=== PATIENT | male | born 1970 | race Caucasian/White ===

== ENCOUNTER 2018-06-23 22:57 | Inpatient (IN) | payer SELFPAY ==
[2018-06-24 00:12] LABS: Hemoglobin 14.1 g/dL (14.0-18.0); Mean Corpuscular HGB CONC 35.5 g/dL (32.0-36.0); Mean Corpuscular Hemoglobin 31.8 pg (27.0-31.0); Mean Corpuscular Volume 89.5 fL (78.0-98.0); Mean Platelet Volume 5.3 fL (7.4-10.4); Platelet Count 331 thou/uL (130-400); RBC Distribution Width 11.9 % (11.5-14.5); Red Blood Cell (RBC) Count 4.43 mill/uL (4.70-6.10); White Blood Cell (WBC) Count 16.8 thou/uL (4.8-10.8)
[2018-06-24 00:14] LABS: ALT (SGPT) 23 U/L (8-55); AST (SGOT) 18 U/L (5-34); Albumin 4.2 g/dL (3.5-5.0); Alkaline Phosphatase 93 U/L (40-150); Anion Gap 13 mmol/L (10-20); BUN (Urea Nitrogen) 14 mg/dL (8.9-20.6); Bilirubin, Total 0.6 mg/dL (0.2-1.2); Calc. Creatinine Clearance 0 mL/min (70-130); Calcium 9.6 mg/dL (7.8-10.44); Carbon Dioxide 24 mmol/L (22-29); Chloride 100 mmol/L (98-107); Estimated GFR-MDRD 80; Globulin 2.8 g/dL (2.4-3.5); Glucose 193 mg/dL (70-105); Lipase 6 U/L (8-78); Potassium 3.9 mmol/L (3.5-5.1); Sodium 133 mmol/L (136-145)
[2018-06-24 00:38] LABS: Band 13 % (5-11); Lymphocytes 14 % (21-51); MDiff Complete? YES; Monocytes 5 % (0-10); Neutrophil 68 % (42-75)
[2018-06-24] MEDS ORDERED: Ondansetron HCl/PF 4 MG/2 ML Vial ONE (01:03)
[2018-06-24] MEDS ORDERED: Ketorolac Tromethamine 30 MG/ML VIAL ONE (01:03)
[2018-06-24] MEDS ORDERED: cefTRIAXone\\ROCEPHIN 1 GM VIAL ONE (01:31)
[2018-06-24 02:03] LABS: Bilirubin Negative (Negative); Blood, Urine Moderate (Negative); Clarity CLEAR (Clear); Glucose, Urine (Dipstick) Negative (Negative); Leukocyte Negative (Negative); Nitrite Negative (Negative); Protein, Urine (Dipstick) 30 mg/dL (Neg-Trace); pH, Urine 6.5 (5.0-9.0)
[2018-06-24 02:05] LABS: Bacteria/HPF None Seen HPF (None Seen); Hyaline Casts/LPF 0-3 HYALINE CAST LPF (0-3 Hyaline); RBC/HPF GREATER THAN 50-TNTC HPF (0-3); Squamous Epithelial 0-3 HPF (0-3); WBC/HPF None Seen HPF (0-3)
[2018-06-24] MEDS ORDERED: Morphine 4 MG/ML VIAL ONE (02:57)
[2018-06-24] MEDS ORDERED: Fentanyl 100 MCG/2 ML VIAL SLOW IVP PRN (04:39)
[2018-06-24] MEDS ORDERED: Ondansetron ODT 4 MG TAB SL PRN (04:40)
[2018-06-24] MEDS ORDERED: HYDROcodone/Acetaminophen 5/325 mg Tablet PO PRN ×2 (04:40)
[2018-06-24] MEDS ORDERED: Ondansetron HCl/PF 4 MG/2 ML Vial IVP PRN ×2 (04:40→07:29)
[2018-06-24] MEDS ORDERED: Sodium Chloride 0.45% 1,000 ML IV SCH (04:45)
[2018-06-24 04:51] VITALS: BMI 30.7
[2018-06-24 07:14] LABS: #Lymphocytes 2.1 thou/uL (1.20-3.40); #Neutrophils 11.4 thou/uL (1.40-6.50); %Basophils 0.3 % (0.0-1.0); %Eosinophils 0.1 % (0.0-10.0); %Lymphocytes 14.7 % (21.0-51.0); %Monocytes 6.7 % (0.0-10.0); %Neutrophils 78.2 % (42.0-75.0); Hemoglobin 12.5 g/dL (14.0-18.0); Mean Corpuscular HGB CONC 35.6 g/dL (32.0-36.0); Mean Corpuscular Hemoglobin 32.1 pg (27.0-31.0); Mean Corpuscular Volume 90.3 fL (78.0-98.0); Mean Platelet Volume 5.5 fL (7.4-10.4); Platelet Count 295 thou/uL (130-400); Red Blood Cell (RBC) Count 3.88 mill/uL (4.70-6.10); White Blood Cell (WBC) Count 14.5 thou/uL (4.8-10.8)
[2018-06-24] MEDS ORDERED: Loperamide HCl 2 MG CAP PO PRN (07:29)
[2018-06-24] MEDS ORDERED: hydrALAZINE 20 MG/ML VIAL SLOW IVP PRN (07:29)
[2018-06-24] MEDS ORDERED: Loratadine 10 MG TAB PO PRN (07:29)
[2018-06-24] MEDS ORDERED: Ondansetron ODT 4 MG TAB PO PRN (07:29)
[2018-06-24] MEDS ORDERED: Senokot 8.6 MG TAB PO PRN (07:29)
[2018-06-24] MEDS ORDERED: Artificial Tears 18 DROP/0.9 ML EA EYE PRN (07:29)
[2018-06-24] MEDS ORDERED: Chloraseptic Spray 180 ml Bottle PO PRN (07:29)
[2018-06-24] MEDS ORDERED: cloNIDine 0.1 MG TAB PO PRN (07:29)
[2018-06-24] MEDS ORDERED: Sodium Chloride 0.65% Nasal 44 ML BOT EA NARE PRN (07:29)
[2018-06-24] MEDS ORDERED: Diabetic Tussin 200 MG/10 ML UDCUP PO PRN (07:29)
[2018-06-24] MEDS ORDERED: Eucerin (Mineral Oil/Petrolatum,White) 30 gm Jar TOP PRN (07:29)
[2018-06-24] MEDS ORDERED: Zolpidem Tartrate 5 MG TAB PO PRN (07:29)
[2018-06-24] MEDS ORDERED: Morphine 4 MG/ML Carpuject SLOW IVP PRN (07:31)
[2018-06-24 08:40] LABS: Amphetamine Not Detected (NotDetected); Barbiturates Screen Not Detected (NotDetected); Benzodiazepine Screen Not Detected (NotDetected); Cocaine Metabolite Screen Not Detected (NotDetected); Medtox Control Line Valid? VALID (VALID); Medtox Reader # READER 1; Methadone Not Detected (NotDetected); Methamphetamine Not Detected (NotDetected); Opiate Screen Detected (NotDetected); Oxycodone Screen Not Detected (NotDetected); Phencyclidine (PCP) Not Detected (NotDetected); THC/Cannabinoid Screen Detected (NotDetected); Tricyclic Screen Not Detected (NotDetected)
[2018-06-24] MEDS ORDERED: ISOVUE-370 76%-LOCM 1 ML ONE (09:04)
--- NOTE | 2018-06-24 09:24 | CT ---
PRELIMINARY REPORT/[facility]/EMERGENTY AFTER-HOURS PROCEDURE Addendum created by Kole Rankin MD on 06/24/2018 1:31 AM Central Time ([place] & [place]) THIS REPORT CONTAINS FINDINGS THAT MAY BE CRITICAL TO PATIENT CARE. The findings were verbally commun icated via telephone conference with Carlos García at 1:31 AM CDT on 06/24/2018. The findings were ackn owledged and understood. Initial Report created on 06/24/2018 1:13 AM Central Time ([place] & [place]) CT Abdomen and Pelvis Without Intravenous Contrast EXAM DATE/TIME: Exam ordered 06/24/2018 12:47 AM CLINICAL HISTORY: 47 years old, male; Pain; Abdominal pain; Flank; Left; Patient HX: M47 presents to ed C/O abd pain, w ith sudden onset 1600 today. Associated with chills, l flank pain. Pain is constant, and pain quality described as severe and sharp. Pt denies hematuria. Last bm this morning, which pt reports was nrml. No pmhx pancreatitis, cholecystectomy. Denies ETOH ingestion. TECHNIQUE: Axial computed tomography images of the abdomen and pelvis without intravenous contrast. Coronal reformatted images were created and reviewed. COMPARISON: No relevant prior studies available. FINDINGS: Lung bases: There is subpleural atelectasis of the dependent portions of the lungs. ABDOMEN: Liver: The liver is within normal limits for this noncontrast study. Gallbladder and bile ducts: The gallbladder is normal. There is no evidence of biliary ductal dilatio n. No calcified stones. Pancreas: The pancreas appears normal. No ductal dilation. Spleen: The spleen is normal. Adrenals: The adrenal glands are normal. Kidneys and ureters: There is acute LEFT renal hematoma measuring 7.5 x 8.5 x 7.0 cm with perinephric hemorrhage as well. The right kidney is normal. No obstructing stones. No hydronephrosis. Stomach and bowel: The stomach is normal. The colon is normal. No obstruction. No mucosal thickening. PELVIS: Appendix: A normal appendix is identified. Bladder: The bladder is normal. No stones. Reproductive: The prostate gland and seminal vesicles are normal. ABDOMEN and PELVIS: Intraperitoneal space: Normal. No free air. No significant fluid collection. Bones/joints: No acute fracture. No dislocation. Soft tissues: Normal. Vasculature: Normal. No abdominal aortic aneurysm. Lymph nodes: Normal. No enlarged lymph nodes. IMPRESSION: Acute LEFT renal hemorrhage/hematoma as above. Thank you for allowing us to participate in the care of your patient. Dictated and Authenticated by: Kole Rankin MD 06/24/2018 1:13 AM Central Time ([place] & [place]) FINAL REPORT CT ABDOMEN AND PELVIS WITHOUT CONTRAST: Date: 06/24/18 FINDINGS/IMPRESSION: I agree with the preliminary report given by To. POS: OFF
[2018-06-24] MEDS: Sodium Chloride 0.9% 1,000 ML IV SCH ×2 (09:26→17:35)
[2018-06-24] MEDS: Famotidine 20 MG TAB PO SCH ×2 (09:26→20:49)
--- NOTE | 2018-06-24 09:26 | CT ---
PRELIMINARY REPORT/[facility]/EMERGENTY AFTER-HOURS PROCEDURE CT Abdomen and Pelvis Without And With Intravenous Contrast EXAM DATE/TIME: Exam ordered 06/24/2018 1:52 AM CLINICAL HISTORY: 47 years old, male; Pain; Abdominal pain; Flank; Left; Prior surgery; Patient HX: M47 presents to ed C/O abd pain, with sudden onset 1600 today. Associated with chills, l flank pain. Pain is constant, a nd pain quality described as severe and sharp. Pt denies hematuria. Last bm this morning, which pt re ports was nrml. No pmhx pancreatitis, cholecystectomy. Denies ETOH ingestion. ; Additional info: Per urologist request, to do a 3 phase renal mass protocol TECHNIQUE: Axial computed tomography images of the abdomen and pelvis without contrast material in one or both b annette regions followed by contrast material and further imaging in one or both body regions. Coronal an d sagittal reformatted images were created and reviewed. COMPARISON: CT Abdomen Pelvis WO Con 06/24/2018 12:47 AM FINDINGS: Lung bases: There is bibasilar dependent atelectasis. ABDOMEN: Liver: Normal. No mass. Gallbladder and bile ducts: Normal. No calcified stones. No ductal dilation. Pancreas: Normal. No mass. No ductal dilation. Spleen: Normal. No splenomegaly. Adrenals: Normal. No mass. Kidneys and ureters: Redemonstrated is a 10 x 7 x 10 mm LEFT renal hemorrhage/hematoma with perinephr ic hemorrhage without clear demonstration of active extravasation on these triple phase CT views (alt luanne no early arterial phase images were included). Punctate amorphous hyperdensity within the LEFT renal hemorrhage is noted, unchanged on each phase, suspicious for calcium versus pse udoaneurysm. ontrast passed freely from the kidneys to the urinary bladder. No obstructing stones. No hydronephrosis. Stomach and bowel: Normal. No obstruction. No mucosal thickening. PELVIS: Appendix: No findings to suggest acute appendicitis. Bladder: See above. Reproductive: Unremarkable as visualized. ABDOMEN and PELVIS: Intraperitoneal space: Normal. No free air. No significant fluid collection. Bones/joints: No acute fracture. No dislocation. Soft tissues: There is a fat-containing umbilical hernia. Vasculature: See above. Lymph nodes: Normal. No enlarged lymph nodes. IMPRESSION: 1. Redemonstrated is a 10 x 7 x 10 mm LEFT renal hemorrhage/hematoma with perinephric hemorrhage with out clear demonstration of active extravasation on these triple phase CT views (although no early art erial phase images were included). 2. Punctate amorphous hyperdensity within the LEFT renal hemorrhage is noted, unchanged on each phase , suspicious for calcium versus pseudoaneurysm. Thank you for allowing us to participate in the care of your patient. Dictated and Authenticated by: Kole Rankin MD 06/24/2018 2:43 AM Central Time ([place] & [place]) FINAL REPORT CT ABDOMEN AND PELVIS WITH AND WITHOUT IV CONTRAST: Date: 06/24/18 FINDINGS/IMPRESSION: I agree with the preliminary report given by To. POS: OFF
[2018-06-24 09:27] LABS: #Eosinphils 0.1 thou/uL (0.0-0.7); #Lymphocytes 2.3 thou/uL (1.20-3.40); #Neutrophils 11.1 thou/uL (1.40-6.50); %Basophils 0.1 % (0.0-1.0); %Eosinophils 0.6 % (0.0-10.0); %Lymphocytes 15.6 % (21.0-51.0); %Neutrophils 76.6 % (42.0-75.0); Hemoglobin 13.1 g/dL (14.0-18.0); Mean Corpuscular HGB CONC 35.4 g/dL (32.0-36.0); Mean Corpuscular Hemoglobin 31.9 pg (27.0-31.0); Mean Corpuscular Volume 90.1 fL (78.0-98.0); Mean Platelet Volume 5.4 fL (7.4-10.4); Platelet Count 320 thou/uL (130-400); White Blood Cell (WBC) Count 14.5 thou/uL (4.8-10.8)
[2018-06-24 09:36] LABS: PTT 29.5 SEC (22.9-36.1); Prothrombin Time 12.9 SEC (12.0-14.7)
[2018-06-24] MEDS: HYDROcodone/Acetaminophen 10/325 mg Tablet PO PRN ×2 (12:01→20:48)
--- NOTE | 2018-06-24 12:29 | CON ---
DATE OF CONSULTATION: 06/24/2018 REASON FOR CONSULTATION: 1. Left-sided flank pain. 2. Left-sided spontaneous perinephric hematoma. PROBLEM LIST Hematoma of left kidney, initial encounter, S37.012A Left flank pain, R10.9 UTI (urinary tract infection), N39.0 HISTORY OF PRESENT ILLNESS: Mr. 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 He reports that he was at work yesterday and developed some left-sided flank pain symptoms, which became progressively worse. He eventually presented to the [facility] Emergency Department starting , 06/24/2018, with severe left-sided flank pain symptoms. He underwent CT scanning of the abdomen and pelvis which demonstrated the presence of a left-sided perinephric hematoma. The patient has been admitted to the hospital and is on Hospitalist Service for observation due to the spontaneous left-sided perinephric hematoma. PAST SURGICAL HISTORY: None. PAST MEDICAL HISTORY: Umbilical hernia only. PSYCHIATRIC HISTORY: The patient has history of bipolar disorder, but is not under treatment. 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 He does not remember any specific injuries associated with work but does a lot of heavy lifting. He wears a lifting belt due to the umbilical hernia. The patient uses marijuana at home. He is a current cigarette smoker, 1-1/2 packs per day. He started smoking at age 14 and has smoked between 1-1-1/2 and 2 packs per day over that. In total, he has about 60 pack years of total cigarette smoking at this point. The patient is and has a child to his College age. He is not currently sexually active, has no male or female partners at present. ALLERGIES: No known drug allergies. HOME MEDICATIONS LIST: Patient takes ibuprofen, usually 800 mg twice a day when he is having pain symptoms and he has had 1600 mg of ibuprofen in the 24 hours prior to his acute onset of left-sided flank pain. PHYSICAL EXAMINATION: VITAL SIGNS: The patient is afebrile with current temperature of 98.0, pulse 71 , respirations 14, room air saturation is 96%. HEAD, EYES, EARS, NOSE, AND THROAT: Extraocular movements are intact. Sclerae are anicteric. Oropharynx is clear. NECK: Supple. LUNGS: Clear to auscultation bilaterally. There are body morphology associated changes in auscultation. CARDIAC: Regular rate and rhythm. EKG monitoring shows the patient to have been in normal sinus rhythm during the current hospitalization. ABDOMEN: Soft and nontender. There is a relatively prominent umbilical hernia which is reducible. BACK: Moderate left-sided flank pain which is continuous and dull in nature. GENITOURINARY: Phallus is circumcised and is without lesion. Urethral meatus appears adequate. Scrotum and contents; testes are present bilaterally in the scrotum. They are smooth, anodular, nontender. There is no evidence of palpable inguinal canal hernia. RECTAL: Digital rectal examination is performed and finds a smooth, anodular, nontender, rubbery characteristic prostate gland with no sinister features and it is nontender. Rectal vault is empty and there are no palpable rectal masses. There are no significant hemorrhoids, fissures or other abnormalities noted. EXTREMITIES: Appear within normal limits. LABORATORY STUDIES: The patient's white count at admission was 16.8 thousand. He had hemoglobin of 14.1 and hematocrit of 39.6. Follow up laboratories performed at 08:57 this morning shows a current white count of 14.5 thousand, hemoglobin of 13.1 and hematocrit of 36.9. Some of this appears to be due to hydration. No microbiology specimens are available for assessment. Urinalysis performed in the emergency department did show greater than 50 red cells per high power field. Urinary protein was 30 with a urine specific gravity of 1.030 indicating dehydration. RADIOLOGIC STUDIES: A CT scan of the abdomen and pelvis was performed on 2017. Study shows an apparent acute left renal hematoma measuring 7.5 x 8.5 x 7 cm with a degree of perinephric hemorrhage as well. Right kidney is normal. There is no evidence of obstructing stones or hydronephrosis on either side. To my review these studies, there is no clear evidence of a renal mass. A renal mass; however, cannot be excluded. Subsequent follow up imaging studies shows redemonstration of 10 x 7 x 10 cm left renal hemorrhage and hematoma with perinephric hemorrhage. There is no clear demonstration of active extravasation on triple phase CT scan study that was performed. There is a punctate amorphous density within the left renal hemorrhage which is unchanged suspicious for calcium or pseudoaneurysm. A large amount of perinephric inflammatory stranding is present. ASSESSMENT AND PLAN: Renal and/or perinephric hematoma with large volume, but no evidence of continued bleeding at the present time. Discussed with the patient's history and does not report significant trauma; however, he wears a lifting belt due to an umbilical hernia. 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 The patient reports that he sometimes bumps into things, but he has no specific recollection of an acute injury. This presentation because he have many potential causes concordant NSAID use alone would may be enough to cause a bleed. In this patient's case, there may be an aneurysm or stone within his kidney which could also be responsible for the presentation. He does appear to have a slight hematocrit drop overnight. The findings on the CT scan imaging studies would correlate well with bleeding from the kidney itself. The patient may have experienced an injury associated with the weight lifting belt itself since this may overlying his lower ribs which are mobile and may make an impression on the kidney itself during lifting event. The patient's heavy use of NSAIDs probably is a contributor to anticoagulation as well. PLAN: 1. The patient should remain on bed rest for at least 2-3 days. He should be followed appropriately with serial hematocrits while in hospital and will need subsequent imaging studies to evaluate his kidney. As the cause of his problem could be trauma, aneurysm rupture or a more sinister cause such as malignancy. This acute bleed needs to be evaluated for potential malignant causes over time and his hematoma will need to be followed. 2. Pain control. The patient's with perinephric or renal hematomas need terminal operator pain control with the medications that do not cause anticoagulation. NSAIDs specifically should be excluded for use in this patient. In my experience, this hematoma and bleeding event, we will leave a hematoma that requires 3-4 months to resolve naturally. Longer term, the patient may be requiring subsequent imaging studies and we should avoid performing any treatments on the patient that would result in further loss of renal function. The patient probably should undergo a baseline renal ultrasound evaluation at some point as well. CT imaging; however, is better for long-term evaluation and certainly evaluation for aneurysms and tumors, thus patient may follow up in my office for further evaluation and assessment. Over 70 minutes of initial evaluation and assessment time was spent in the care of this patient, over of which was in face to face evaluation, or in coordination of care, or in communication with the patient's family regarding care, exclusive of any procedures performed, [id number]. [facility]
--- NOTE | 2018-06-24 12:30 | HP ---
PRIMARY CARE PHYSICIAN: [facility] call admission. REASON FOR ADMISSION: Spontaneous left renal hemorrhage, intractable left flank pain. HISTORY OF PRESENT ILLNESS: A 47-year-old male who has no significant medical history, who was oleksandr odom on and off basis ibuprofen for his on and off musculoskeletal pain, who came to emergency room last night with acute onset of left flank pain, which was started yesterday around 4:00 p.m. which was sh matt in nature, constant, 10/10 in intensity, getting worse with sitting up position as well as with m ovement. He denied any gross hematuria. He denied any UTI symptoms. He did not have any constipati on, diarrhea, melena or hematochezia. He denies any fall or trauma. He denies any injury. With these symptoms, he presented to the ER and at that point, he had a CT of the abdomen and pelvis which showed left renal hemorrhage with perinephric hemorrhage. Dr. Andrade was notified from emergenc y room and subsequently this patient was admitted to telemetry floor. His pain was well controlled a fter pain medication in the emergency room, but it was not completely gone. He did not have any ches t pain, palpitation. He is not taking any blood thinner medicine. His vitals were stable in the [facility], [place]. REVIEW OF SYSTEMS: Please see my HPI for pertinent positive and negative. All other review of syste m reviewed and negative except as mentioned in the HPI. Constitutional: Weight loss or gain, ability to conduct usual activities. Skin: Rash, itching. Eyes: Double vision, pain. ENT/Mouth: Nose bleeding, neck stiffness, pain, tenderness. Cardiovascular: Palpitations, dyspnea on exertion, orthopnea. Respiratory: Shortness of breath, wheezing, cough, hemoptysis, fever or night sweats. Gastrointestinal: Poor appetite, abdominal pain, heartburn, nausea, vomiting, constipation, or diarrhea. Genitourinary: Urgency, frequency, dysuria, nocturia. Musculoskeletal: Pain, swelling. Neurologic/Psychiatric: Anxiety, depression. Allergy/Immunologic: Skin rash, bleeding tendency. ALLERGIES: No known drug allergy. CURRENT HOME MEDICATIONS: The patient was taking ibuprofen on as needed basis. PAST MEDICAL HISTORY: History of umbilical hernia, asymptomatic. No other medical history. PAST SURGICAL HISTORY: The patient denies any previous surgical history. PAST PSYCHIATRIC HISTORY : The patient does report that he was diagnosed with bipolar disorder, but currently he is not taking any medication. SOCIAL HISTORY: The patient reports that he abuses marijuana on and off basis. He smokes about 1.5 pack per day. He denies any alcohol abuse. He denies any other illicit drug abuse. FAMILY HISTORY: No strong family history of premature coronary artery disease, stroke or cancer. EMERGENCY ROOM COURSE: The patient was given Rocephin 1 gram, morphine 4 mg, Toradol 30 mg, IV fluid , Zofran 4 mg, and the patient was given another dose of morphine. PHYSICAL EXAMINATION: VITAL SIGNS: On arrival, blood pressure 124/83, pulse 82, respiratory rate 21, temperature 97.9, sat uration 95% on room air, weight 107.9 kilograms. GENERAL: The patient is currently alert, awake, no obvious acute distress. HEENT: Normocephalic, atraumatic. EYES: Pupils round, reactive to light. Extraocular muscle intact. ENT: Oropharynx within normal limits. Moist mucous membrane. No oral lesion, no pharyngeal erythem a, no exudate. NECK: Supple, no JVD, no thyromegaly, no carotid bruit, no jugular venous distention. LUNGS: Clear to auscultation without any rhonchi or rales. CARDIAC: S1, S2 regular. No murmur, no gallop, no rub. ABDOMEN: The patient does have left flank tenderness, no peritoneal sign, no guarding, no rigidity, no rebound, no suprapubic tenderness. BACK: Left-sided CVA discomfort noted. No low point tenderness. EXTREMITIES: Upper extremity: Passive movement of all joints are normal. Lower extremity: No anya a. Good distal pulsation. SKIN: No skin rash. HEMATOLOGICAL: No lymphadenopathy. PSYCHIATRIC: Normal affect. NEUROLOGIC: The patient is alert, oriented x3. Cranial nerves II-XII intact. Motor and sensation w ithin normal limits. No focal neurological deficit noted. SIGNIFICANT LABORATORY DATA: WBC 16.8, hemoglobin 14.1, platelets 331 with bandemia. INR 1.0. BMP: Sodium 133, potassium 3.9, chloride 100, carbon dioxide 24, BUN 14, creatinine 1.01, glucose 193, c alcium 9.6. Lactic acid 1.5. LFT: AST 18, ALT 23, alkaline phosphatase 93, albumin 4.2, lipase 6. Urinalysis microscopic hematuria. Urine drug screen positive for opiates and cannabinoids. CT of the abdomen and pelvis showed 10 x 7 x 10 mm left renal hemorrhage with perinephric hemorrhage, punctate amorphous hyperdensity within the left renal hemorrhage. monitor tech showing normal sinus rhythm. ASSESSMENT AND PLAN: 1. Intractable left flank pain due to spontaneous left renal hemorrhage with perinephric hemorrhage. 2. Left renal hemorrhage with perinephric hemorrhage, unclear etiology. 3. Leukocytosis with bandemia, likely due to problem #1 and 2. 4. Mild hyponatremia. 5. Elevated blood sugar, rule out prediabetes. 6. Microscopic hematuria likely due to problem #1 and 2. 7. Obesity with body mass index 30. 8. Cannabis abuse. 9. Tobacco abuse disorder. 10. Bipolar disorder. PLAN: 1. Full admission to medical floor. He does not need any telemetry, so we will transfer him to [facility] floor. His pain will be controlled with morphine 4 mg every 4 hourly p.r.n. basis. Urology deonna desouza consulted. He does not need any antibiotic therapy at this point. We will follow up on culture result. We will monitor H&H periodically. He does not need any blood transfusion at this point. We will resume his regular diet. We will ambulate him as tolerated. Tomorrow, we will check hemoglobi n A1c. We will repeat CBC and BMP tomorrow. Healthy lifestyle measure discussed with the patient in cluding to avoid cannabinoid abuse as well as tobacco abuse. 2. This patient will need a repeat MRI kidney or CT angiography to rule out any vascular anomaly in kidney after 2-3 weeks. He needs to follow up with Urology. 3. DVT prophylaxis. No Lovenox because of bleeding. 4. Gastrointestinal prophylaxis, Pepcid 20 mg p.o. b.i.d. 5. Code status: The patient is FULL CODE. The patient does not have any surrogate decision maker. Disposition plan based on clinical course and pain control. We are expecting patient's stay in [facility] more than 2 midnights. Plan of care discussed with the patient in detail.
[2018-06-24 12:57] LABS: #Eosinphils 0.2 thou/uL (0.0-0.7); #Lymphocytes 2.3 thou/uL (1.20-3.40); #Neutrophils 10.6 thou/uL (1.40-6.50); %Basophils 0.3 % (0.0-1.0); %Eosinophils 1.1 % (0.0-10.0); %Lymphocytes 16.1 % (21.0-51.0); %Monocytes 7.3 % (0.0-10.0); %Neutrophils 75.2 % (42.0-75.0); Hemoglobin 12.6 g/dL (14.0-18.0); Mean Corpuscular Hemoglobin 31.5 pg (27.0-31.0); Mean Platelet Volume 5.7 fL (7.4-10.4); Platelet Count 305 thou/uL (130-400); RBC Distribution Width 11.9 % (11.5-14.5); Red Blood Cell (RBC) Count 4.01 mill/uL (4.70-6.10)
[2018-06-24] MEDS: Nicotine 21 MG PATCH TOP SCH (20:47)
[2018-06-24] MEDS: Acetaminophen 325 MG TAB PO PRN (20:48)
[2018-06-25] MEDS: HYDROcodone/Acetaminophen 10/325 mg Tablet PO PRN ×3 (00:21→21:22)
[2018-06-25 05:29] LABS: #Eosinphils 0.1 thou/uL (0.0-0.7); #Lymphocytes 1.6 thou/uL (1.20-3.40); #Monocytes 1.2 thou/uL (0.11-0.59); #Neutrophils 11.5 thou/uL (1.40-6.50); %Eosinophils 0.5 % (0.0-10.0); %Lymphocytes 11.4 % (21.0-51.0); %Monocytes 8.6 % (0.0-10.0); %Neutrophils 79.5 % (42.0-75.0); Hemoglobin 11.7 g/dL (14.0-18.0); Mean Corpuscular HGB CONC 35.4 g/dL (32.0-36.0); Mean Corpuscular Hemoglobin 32.3 pg (27.0-31.0); Mean Corpuscular Volume 91.1 fL (78.0-98.0); Mean Platelet Volume 5.8 fL (7.4-10.4); Platelet Count 281 thou/uL (130-400); Red Blood Cell (RBC) Count 3.63 mill/uL (4.70-6.10); White Blood Cell (WBC) Count 14.4 thou/uL (4.8-10.8)
[2018-06-25 05:46] LABS: Anion Gap 9 mmol/L (10-20); BUN (Urea Nitrogen) 13 mg/dL (8.9-20.6); Calc. Creatinine Clearance 118 mL/min (70-130); Calcium 8.6 mg/dL (7.8-10.44); Carbon Dioxide 23 mmol/L (22-29); Chloride 105 mmol/L (98-107); Estimated GFR-MDRD 69; Glucose 118 mg/dL (70-105); Potassium 3.8 mmol/L (3.5-5.1); Sodium 133 mmol/L (136-145)
[2018-06-25] MEDS: Acetaminophen 325 MG TAB PO PRN ×2 (08:46→16:17)
[2018-06-25] MEDS: Famotidine 20 MG TAB PO SCH ×2 (08:46→21:24)
[2018-06-25] MEDS: Mag-Al 1200 mg/1200 mg/30 ML UDCUP PO PRN (08:48)
--- NOTE | 2018-06-25 10:40 | PDOC.PN ---
- Subjective Encounter Start Date: 06/25/18 Encounter Start Time: 07:00 -: old records requested/rev pt has tolerable left flank pain with current pain meds, he has not ambulated yet, he has fever, has high wbc count and hb is still dropping - Objective Resuscitation Status: Resuscitation Status FULL:Full Resuscitation MAR Reviewed: Yes Vital Signs & Weight: Vital Signs (12 hours) Temp Pulse Resp BP BP Pulse Ox 06/25/18 07:00 100.0 F H 93 18 137/74 90 L 06/24/18 23:39 98.3 F 87 16 123/78 93 L Weight Weight 226 lb 14.4 oz I&O: 06/24/18 06/25/18 06/26/18 06:59 06:59 06:59 Intake Total 1740 Output Total 1100 Balance 640 Result Diagrams: 06/25/18 04:56 06/25/18 04:56 Phys Exam - Physical Examination Constitutional: NAD HEENT: PERRLA, moist MMs, sclera anicteric Neck: no JVD, supple Respiratory: no wheezing, no rales, no rhonchi Cardiovascular: RRR, no significant murmur, no rub Gastrointestinal: soft, non-tender, no distention, positive bowel sounds left flank discomfort Musculoskeletal: no edema, pulses present Neurological: non-focal, normal sensation, moves all 4 limbs Lymphatic: no nodes Psychiatric: normal affect, A&O x 3 Skin: no rash, normal turgor Dx/Plan (1) Acute left flank pain Code(s): R10.9 - UNSPECIFIED ABDOMINAL PAIN Status: Acute (2) Hemorrhage of left kidney Code(s): N28.89 - OTHER SPECIFIED DISORDERS OF KIDNEY AND URETER Status: Acute (3) Anemia due to acute blood loss Code(s): D62 - ACUTE POSTHEMORRHAGIC ANEMIA Status: Acute (4) Leucocytosis Code(s): D72.829 - ELEVATED WHITE BLOOD CELL COUNT, UNSPECIFIED Status: Acute Qualifiers: Leukocytosis type: bandemia Qualified Code(s): D72.825 - Bandemia (5) Microscopic hematuria Code(s): R31.29 - OTHER MICROSCOPIC HEMATURIA Status: Acute (6) Cannabis abuse Code(s): F12.10 - CANNABIS ABUSE, UNCOMPLICATED Status: Chronic (7) Obesity (BMI 30.0-34.9) Code(s): E66.9 - OBESITY, UNSPECIFIED Status: Chronic (8) Tobacco abuse Code(s): Z72.0 - TOBACCO USE Status: Chronic - Plan cont current plan of care, plan discussed w/ family, continue antibiotics * will observe one more day * ambulate with walking program * pain control with pain meds * as fever, leucocytosis, will start rocephin * monitor H & H, still dropping * repeat labs tomorrow * medication reviewed as below * symptomatic treatment. Review of Systems - Review of Systems Constitutional: fever. negative: chills, sweats, weakness, malaise, other ENT: negative: Ear Pain, Ear Discharge, Nose Pain, Nose Discharge, Nose Congestion, Mouth Pain, Mouth Swelling, Throat Pain, Throat Swelling, Other Respiratory: negative: Cough, Dry, Shortness of Breath, Hemoptysis, SOB with Excertion, Pleuritic Pain, Sputum, Wheezing Cardiovascular: negative: chest pain, palpitations, orthopnea, paroxysmal nocturnal dyspnea, edema, light headedness, other Gastrointestinal: Abdominal Pain. negative: Nausea, Vomiting, Diarrhea, Constipation, Melena, Hematochezia, Other Genitourinary: negative: Dysuria, Frequency, Incontinence, Hematuria, Retention , Other Musculoskeletal: negative: Neck Pain, Shoulder Pain, Arm Pain, Back Pain, Hand Pain, Leg Pain, Foot Pain, Other Skin: negative: Rash, Lesions, Trey, Bruising, Other - Medications/Allergies Allergies/Adverse Reactions: Allergies Allergy/AdvReac Type Severity Reaction Status Date / Time No Known Allergies Allergy Verified 06/24/18 04:59 Medications: Current Medications Acetaminophen (Tylenol) 650 mg PO Q4H PRN PRN Reason: Headache/Fever or Pain Last Admin: 06/25/18 08:46 Dose: 650 mg Hydrocodone Bitart/Acetaminophen ([place] 10/325) 1 tab PO Q4H PRN PRN Reason: Moderate Pain (4-6) Last Admin: 06/25/18 00:21 Dose: 1 tab Al Hydroxide/Mg Hydroxide (Maalox) 30 ml PO Q6H PRN PRN Reason: Heartburn or Indigestion Last Admin: 06/25/18 08:48 Dose: 30 ml Artificial Tears (Tears Naturale) 0 drop EA EYE PRN PRN PRN Reason: Dry Eyes Clonidine (Catapres) 0.1 mg PO Q4H PRN PRN Reason: Systolic BP > 180 Famotidine (Pepcid) 20 mg PO BID [facility] Last Admin: 06/25/18 08:46 Dose: 20 mg Guaifenesin (Robitussin Sf) 200 mg PO Q4H PRN PRN Reason: Cough Hydralazine HCl (Apresoline) 10 mg SLOW IVP Q4H PRN PRN Reason: Systolic BP > 180 Sodium Chloride (Normal Saline 0.9%) 1,000 mls @ 100 mls/hr IV .Q10H [facility] Last Admin: 06/24/18 17:35 Dose: 1,000 mls Ceftriaxone Sodium 1 gm/ (Sodium Chloride) 100 mls @ 200 mls/hr IVPB Q24HR [facility] Loperamide HCl (Imodium) 2 mg PO PRN PRN PRN Reason: Diarrhea/Loose Stools Loratadine (Claritin) 10 mg PO DAILYPRN PRN PRN Reason: Sinus Symptoms Magnesium Hydroxide (Milk Of Magnesium) 30 ml PO DAILYPRN PRN PRN Reason: Constipation Mineral Oil/White Petrolatum (Eucerin Cream) 0 gm TOP BIDPRN PRN PRN Reason: Dry Skin Morphine Sulfate (Morphine) 4 mg IV Q2H PRN PRN Reason: Pain Nicotine (Nicoderm Patch) 21 mg TOP Q24HR [facility] Last Admin: 06/24/18 20:47 Dose: 21 mg Ondansetron HCl (Zofran Odt) 4 mg PO Q6H PRN PRN Reason: Nausea/Vomiting Ondansetron HCl (Zofran) 4 mg IVP Q6H PRN PRN Reason: Nausea/Vomiting Phenol (Chloraseptic [place] 180 Ml Bot) 0 ml PO PRN PRN PRN Reason: Sore Throat Senna (Senokot) 2 tab PO HSPRN PRN PRN Reason: Constipation Sodium Chloride (Flush - Normal Saline) 10 ml IVF Q12HR [facility] Last Admin: 06/24/18 20:51 Dose: 10 ml Sodium Chloride (Flush - Normal Saline) 10 ml IVF PRN PRN PRN Reason: Saline Flush Sodium Chloride ([place] Nasal [place] 0.65%) 0 ml EA NARE QIDPRN PRN PRN Reason: Nasal Congestion Zolpidem Tartrate (Ambien) 5 mg PO HSPRN PRN PRN Reason: Insomnia
[2018-06-25] MEDS: cefTRIAXone\\ROCEPHIN 1 GM in Sodium Chloride 0.9% 100 ML IVPB SCH (11:15)
[2018-06-25] MEDS: Sodium Chloride 0.9% 1,000 ML IV SCH (14:34)
[2018-06-25] MEDS: Milk Of Magnesia 30 ML UDCUP PO PRN (18:30)
[2018-06-25] MEDS: Vancomycin HCl 1.5 GM in Sodium Chloride 0.9% 250 ML 300 ML IVPB SCH (21:21)
[2018-06-25] MEDS: Nicotine 21 MG PATCH TOP SCH (21:22)
--- NOTE | 2018-06-25 23:14 | CON ---
DATE OF HOSPITAL ADMISSION: 06/24/2018 DATE OF CONSULTATION: 06/25/2018 INITIAL REASON FOR CONSULTATION: Spontaneous left-sided hematoma with acute flank pain. PROBLEM LIST Hematoma of left kidney, initial encounter, S37.012A Left flank pain, R10.9 UTI (urinary tract infection), N39.0 HISTORY OF PRESENT ILLNESS: Mr. Harshal Beth is a very pleasant 47-year-old white male who I evaluated in consultation on 06/24/2018 due to a spontaneous left-sided renal hematoma. The patient also had some degree of perinephric hematoma as well. Mr. Beth does not relate a significant story of traumatic injury. The patient reported that he had been at work in his usual printing train job and developed acute onset left-sided flank pain symptoms, which became progressively worse. Eventually presenting to the emergency department for evaluation and underwent CT scanning of the abdomen and pelvis demonstrating a large left-sided perinephric hematoma. Since I last saw Mr. Beth, his urine cultures become available and this has grown out Streptococcus agalactiae group B. The patient's blood cultures have remained negative. He had relatively low quantity of Strep agalactiae less than 10,000 colony forming units. The patient's admission urinalysis was notable for greater than 50 red cells per high power field. Urine gravity was also elevated at 1.030, indicating a degree of dehydration. There were interestingly no white blood cells seen on that positive urinalysis. PHYSICAL EXAMINATION: VITAL SIGNS: The patient has been febrile over the last 24 hours including a fever to 102 degrees today at 4:00 p.m. Prior to this, he was afebrile. The patient had a slight reduction and his temperature now to 100.4. HEAD, EYES, EARS, NOSE AND THROAT: Extraocular movements are intact. Sclerae are anicteric. Oropharynx is clear. The patient's dentition is extremely poor. There are numerous carious teeth, most of them down to the gumline. The patient reports that he has had a lot of trouble with his teeth and has always been to have them treated. LUNGS: Clear to auscultation bilaterally. CARDIAC: Regular rate and rhythm without murmur, rub or gallop. I could not hear any specific valvular problems on auscultation. BACK: No true costovertebral angle tenderness. The patient does report on percussion of the left flank, he feels left anterior abdominal discomfort in the left upper and lower quadrants consistent with patient's known history of left perinephric hematoma. GENITOURINARY: Genitourinary examination was not repeated today. EXTREMITIES: Appear within normal limits. The patient is able to ambulate without undue difficulty, does not appear physically ill at the present time. LABORATORY STUDIES: The laboratory studies were previously noted as above. Current white count 14,400 down from 16,800 at admission, hemoglobin is 11.7 down from 14.1 at admission, hematocrit is 33.1 down from 39.6 at admission. There is a relative left shift with 79.5% neutrophils present. ASSESSMENT AND PLAN: This is the patient with a very peculiar presentation of a spontaneous left-sided perinephric hematoma and simultaneous elevated white cell count, left shift and Streptococcus agalactiae in the urine. The patient has carious teeth after assessment of the constellation of symptoms, I think the patient should be evaluated for possible septic emboli. The patient and I discussed his carious teeth which has been quite an issue for him. I am recommending this patient to undergo either transthoracic echocardiogram or a SONYA for evaluation of his heart valves. In addition, the patient has had some changes in his hematocrit and hemoglobin content which I think would merit a repeat CT scan imaging study at this point as well. I will go ahead and order the CT scan imaging study. The drop in the patient's hemoglobin and hematocrit may be fully accounted for by rehydration and third space resolution. ID concerns, the patient appears to be appropriately covered on current antibiotic coverage for the Streptococcus agalactiae and I recommend continuing appropriate antibiotic coverage for this. I did discuss the clinical findings and current laboratory results with Dr. Magdi Holm and we are in agreement. The patient should undergo a TTE study. At the present time, I do not think the patient is suitable for discharge home until we have appropriate resolution of his active issues. Over 35 minutes of subsequent evaluation and assessment time was spent in the care of this patient, over of which was in face to face evaluation, or in coordination of care, or in communication with the patient's family regarding care, exclusive of any procedures performed, [id number]. [facility]
[2018-06-26] MEDS: Sodium Chloride 0.9% 1,000 ML IV SCH ×2 (02:17→02:50)
[2018-06-26] MEDS: HYDROcodone/Acetaminophen 10/325 mg Tablet PO PRN ×3 (02:49→23:47)
[2018-06-26 05:18] LABS: Anion Gap 12 mmol/L (10-20); BUN (Urea Nitrogen) 12 mg/dL (8.9-20.6); Calc. Creatinine Clearance 139 mL/min (70-130); Calcium 8.2 mg/dL (7.8-10.44); Carbon Dioxide 23 mmol/L (22-29); Chloride 103 mmol/L (98-107); Estimated GFR-MDRD 83; Glucose 113 mg/dL (70-105); Potassium 3.6 mmol/L (3.5-5.1); Sodium 134 mmol/L (136-145)
[2018-06-26 07:11] LABS: Band 16 % (5-11); Lymphocytes 12 % (21-51); MDiff Complete? YES; Mean Corpuscular HGB CONC 35.4 g/dL (32.0-36.0); Mean Corpuscular Hemoglobin 32.1 pg (27.0-31.0); Mean Corpuscular Volume 90.6 fL (78.0-98.0); Mean Platelet Volume 5.9 fL (7.4-10.4); Monocytes 6 % (0-10); Neutrophil 66 % (42-75); Platelet Count 241 thou/uL (130-400); RBC Distribution Width 11.8 % (11.5-14.5); White Blood Cell (WBC) Count 13.3 thou/uL (4.8-10.8)
[2018-06-26] MEDS: Vancomycin HCl 1.5 GM in Sodium Chloride 0.9% 250 ML 300 ML IVPB SCH ×2 (08:40→20:55)
[2018-06-26] MEDS: Milk Of Magnesia 30 ML UDCUP PO PRN (08:45)
[2018-06-26] MEDS: Famotidine 20 MG TAB PO SCH ×2 (08:56→20:56)
--- NOTE | 2018-06-26 10:19 | CT ---
CT OF THE ABDOMEN AND PELVIS WITH AND WITHOUT IV CONTRAST: Date: 06/26/18 INDICATION: Follow-up left perirenal hematoma with left-sided abdominal pain. COMPARISON: Noncontrast CT abdomen and pelvis dated 06/24/[address] abdomen and pelvis with and without contrast dated 06/24/18. FINDINGS: The parenchymal and periparenchymal hematoma involving the left kidney predominantly involving the velasco perior pole and mid pole level is slightly larger in measurement measuring 9.2 x 11.0 x 11.5 cm in it s greatest mediolaterally, AP, and craniocaudal dimensions. Previously, the collection measured 7.3 x 11.1 x 10.6 cm in those dimensions on the comparison dated 06/24/18. No active extravasation is dangelo sly evident. There is a component that appears to have a claw sign involving the anterior aspect of t he left kidney suspicious for a hypodense mass within this location. This may be the center of the bl eeding and a prominent hematoma that has developed in this location; however, a large cyst could have this appearance that bled. There is no enhancing nodular component demonstrated involving this intra parenchymal and periparenchymal collection to suggest a renal neoplasm. There are prominent areas of hematoma within the collection that could obscure a small renal mass lesion just due to the density o f the blood. There is a tiny calcification seen along the inferior to mid aspect of the collection on image 47 of series 3 that is stable. The significance of this small calcification is undetermined. The extent of the retroperitoneal hematoma within the perinephric and perirenal fascia is stable. Bot h kidneys appear enhanced, although the left kidney appears to enhance slightly delayed, which can be seen with perinephric hematomas. There is bilateral excretion within the renal collecting systems. There is a small left pleural effusion that has developed in the interim. There is bibasilar atelecta sis, which has also progressed in the interim. The remaining portions of the examination are not appreciably changed. There is a fat-containing umbi lical hernia. Liver, pancreas, adrenal glands, and spleen appear within normal limits. Small and larg e bowel appear within normal limits. There is scattered degenerative and osteoarthritic change. IMPRESSION: 1. Interval enlargement of the left perirenal hematoma. No visible enhancing lesion is evident withi n the collection. Small punctate calcification seen within the inferior to mid aspect of the collecti on is stable. No active extravasation is noted. CT follow up recommended. 2. Other stable findings as above. POS: SENDY
--- NOTE | 2018-06-26 10:39 | PDOC.PN ---
- Subjective Encounter Start Date: 06/26/18 Encounter Start Time: 07:00 pt had fever yesterday, this morning no fever, wbc count is coming down, urine culture is positive, had CT abdomen done - Objective Resuscitation Status: Resuscitation Status FULL:Full Resuscitation MAR Reviewed: Yes Vital Signs & Weight: Vital Signs (12 hours) Temp Pulse Resp BP Pulse Ox 06/26/18 07:40 99 F 97 24 H 142/85 H 93 L 06/26/18 00:00 99.2 F 84 18 126/77 91 L Weight Weight 226 lb 14.4 oz I&O: 06/25/18 06/26/18 06/27/18 06:59 06:59 06:59 Intake Total 1740 1820 Output Total 1100 Balance 640 1820 Result Diagrams: 06/26/18 04:34 06/26/18 04:34 Radiology Reviewed by me: Yes (CT abdomen noted) Phys Exam - Physical Examination Constitutional: NAD HEENT: PERRLA, moist MMs, sclera anicteric Neck: no JVD, supple Respiratory: no wheezing, no rales, no rhonchi Cardiovascular: RRR, no significant murmur, no rub Gastrointestinal: soft, non-tender, no distention, positive bowel sounds Musculoskeletal: no edema, pulses present Neurological: non-focal, normal sensation, moves all 4 limbs Psychiatric: normal affect, A&O x 3 Skin: no rash, normal turgor Dx/Plan (1) Acute left flank pain Code(s): R10.9 - UNSPECIFIED ABDOMINAL PAIN Status: Acute (2) Hemorrhage of left kidney Code(s): N28.89 - OTHER SPECIFIED DISORDERS OF KIDNEY AND URETER Status: Acute (3) Anemia due to acute blood loss Code(s): D62 - ACUTE POSTHEMORRHAGIC ANEMIA Status: Acute (4) Leucocytosis Code(s): D72.829 - ELEVATED WHITE BLOOD CELL COUNT, UNSPECIFIED Status: Acute Qualifiers: Leukocytosis type: bandemia Qualified Code(s): D72.825 - Bandemia (5) Microscopic hematuria Code(s): R31.29 - OTHER MICROSCOPIC HEMATURIA Status: Acute (6) Cannabis abuse Code(s): F12.10 - CANNABIS ABUSE, UNCOMPLICATED Status: Chronic (7) Obesity (BMI 30.0-34.9) Code(s): E66.9 - OBESITY, UNSPECIFIED Status: Chronic (8) Tobacco abuse Code(s): Z72.0 - TOBACCO USE Status: Chronic (9) Sepsis Code(s): A41.9 - SEPSIS, UNSPECIFIED ORGANISM Status: Acute - Plan cont current plan of care, continue antibiotics * he is on vancomycin and rocephin * septic emboli is good thought given he has h/o rotton teeth, his urine culture is positive for streptococcus * if blood culture positive, then will consult id team if needed, * doubt has any IE, but if TTE abnormal and persistent fever, then may need SONYA * left renal hematoma is getting large, that explained by his steady drop in Hb * medication reviewed as below * symptomatic treatment * DC IVF * incentive spirometry advised Review of Systems - Review of Systems Constitutional: fever, weakness ENT: negative: Ear Pain, Ear Discharge, Nose Pain, Nose Discharge, Nose Congestion, Mouth Pain, Mouth Swelling, Throat Pain, Throat Swelling, Other Respiratory: negative: Cough, Dry, Shortness of Breath, Hemoptysis, SOB with Excertion, Pleuritic Pain, Sputum, Wheezing Cardiovascular: negative: chest pain, palpitations, orthopnea, paroxysmal nocturnal dyspnea, edema, light headedness, other Gastrointestinal: negative: Nausea, Vomiting, Abdominal Pain, Diarrhea, Constipation, Melena, Hematochezia, Other Genitourinary: negative: Dysuria, Frequency, Incontinence, Hematuria, Retention , Other Musculoskeletal: negative: Neck Pain, Shoulder Pain, Arm Pain, Back Pain, Hand Pain, Leg Pain, Foot Pain, Other Skin: negative: Rash, Lesions, Trey, Bruising, Other - Medications/Allergies Allergies/Adverse Reactions: Allergies Allergy/AdvReac Type Severity Reaction Status Date / Time No Known Allergies Allergy Verified 06/24/18 04:59 Medications: Current Medications Acetaminophen (Tylenol) 650 mg PO Q4H PRN PRN Reason: Headache/Fever or Pain Last Admin: 06/25/18 16:17 Dose: 650 mg Hydrocodone Bitart/Acetaminophen ([place] 10/325) 1 tab PO Q4H PRN PRN Reason: Moderate Pain (4-6) Last Admin: 06/26/18 08:45 Dose: 1 tab Al Hydroxide/Mg Hydroxide (Maalox) 30 ml PO Q6H PRN PRN Reason: Heartburn or Indigestion Last Admin: 06/25/18 08:48 Dose: 30 ml Artificial Tears (Tears Naturale) 0 drop EA EYE PRN PRN PRN Reason: Dry Eyes Clonidine (Catapres) 0.1 mg PO Q4H PRN PRN Reason: Systolic BP > 180 Famotidine (Pepcid) 20 mg PO BID [facility] Last Admin: 06/26/18 08:56 Dose: 20 mg Guaifenesin (Robitussin Sf) 200 mg PO Q4H PRN PRN Reason: Cough Hydralazine HCl (Apresoline) 10 mg SLOW IVP Q4H PRN PRN Reason: Systolic BP > 180 Ceftriaxone Sodium 1 gm/ (Sodium Chloride) 100 mls @ 200 mls/hr IVPB Q24HR [facility] Last Admin: 06/26/18 10:41 Dose: 100 mls Vancomycin HCl 1.5 gm/ Sodium (Chloride) 300 mls @ 200 mls/hr IVPB 0800,1999 [facility] Last Admin: 06/26/18 08:40 Dose: 300 mls Loperamide HCl (Imodium) 2 mg PO PRN PRN PRN Reason: Diarrhea/Loose Stools Loratadine (Claritin) 10 mg PO DAILYPRN PRN PRN Reason: Sinus Symptoms Magnesium Hydroxide (Milk Of Magnesium) 30 ml PO DAILYPRN PRN PRN Reason: Constipation Last Admin: 06/26/18 08:45 Dose: 30 ml Mineral Oil/White Petrolatum (Eucerin Cream) 0 gm TOP BIDPRN PRN PRN Reason: Dry Skin Miscellaneous Medication (Pharmacy To Dose) 1 each IVPB PRN PRN PRN Reason: . Morphine Sulfate (Morphine) 4 mg IV Q2H PRN PRN Reason: Pain Nicotine (Nicoderm Patch) 21 mg TOP Q24HR [facility] Last Admin: 06/25/18 21:22 Dose: 21 mg Ondansetron HCl (Zofran Odt) 4 mg PO Q6H PRN PRN Reason: Nausea/Vomiting Ondansetron HCl (Zofran) 4 mg IVP Q6H PRN PRN Reason: Nausea/Vomiting Phenol (Chloraseptic [place] 180 Ml Bot) 0 ml PO PRN PRN PRN Reason: Sore Throat Senna (Senokot) 2 tab PO HSPRN PRN PRN Reason: Constipation Sodium Chloride (Flush - Normal Saline) 10 ml IVF Q12HR [facility] Last Admin: 06/26/18 08:40 Dose: 10 ml Sodium Chloride (Flush - Normal Saline) 10 ml IVF PRN PRN PRN Reason: Saline Flush Sodium Chloride ([place] Nasal [place] 0.65%) 0 ml EA NARE QIDPRN PRN PRN Reason: Nasal Congestion Zolpidem Tartrate (Ambien) 5 mg PO HSPRN PRN PRN Reason: Insomnia
[2018-06-26] MEDS: cefTRIAXone\\ROCEPHIN 1 GM in Sodium Chloride 0.9% 100 ML IVPB SCH (10:41)
[2018-06-26] MEDS: Mag-Al 1200 mg/1200 mg/30 ML UDCUP PO PRN (10:44)
[2018-06-26] MEDS: Morphine 4 MG/ML VIAL IV PRN ×2 (15:27→20:58)
--- NOTE | 2018-06-26 15:41 | CON ---
DATE OF CONSULTATION: 06/26/2018 INITIAL REASON FOR CONSULTATION: Spontaneous left renal perinephric hematoma. PROBLEM LIST Hematoma of left kidney, initial encounter, S37.012A Left flank pain, R10.9 UTI (urinary tract infection), N39.0 HISTORY OF PRESENT ILLNESS: Mr. Harshal Beth is a very pleasant 47-year-old white male who works in the [employer] trades. Mr. Beth developed acute onset left-sided flank pain which started on 06/24/2018 and presented to the [facility] and underwent CT scanning demonstrating a left- sided perinephric hematoma. The patient did have elevation of his white blood cell count as well as a drop in his hematocrit over time and also developed a transient fever. The patient has been admitted to the Oncology floor for evaluation and observation. INTERVAL EVENTS: The patient underwent a transthoracic echocardiogram this morning, the report of which is not yet available. A CT scan of the abdomen and pelvis was also performed which demonstrates interval increase in the perinephric hematoma without evidence of active bleeding. There is no evidence of extravasation or new blood around the patient's kidney. The overall size of the hematoma is increased relative to the admission CT scan. This was a 3-phase study and shows no urine leak. There are no obviously enhancing masses associated with the perinephric hematoma. There is a claw sign demonstrating that this process occurred within the parenchyma of the kidney and in addition, there is a small amount of calcium within the hematoma suggesting the possibility of a cyst previously in this area with a calcification within it. Patient's general condition overnight has been stable. PHYSICAL EXAMINATION: VITAL SIGNS: The patient has been afebrile since yesterday afternoon at 4:10 p.m. when his T-max was 102.0 F, has gradually come down over time since then with institution of antibiotic therapy. HEENT: Extraocular movements are intact. Sclerae are anicteric. Oropharynx is clear. NECK: Supple. LUNGS: Clear to auscultation bilaterally. CARDIAC: Regular rate and rhythm. Pulse is 84, respiratory rate 18, O2 saturation on room air is 91%, blood pressure is 126/77 with relative stability. ABDOMEN: Soft and nontender. BACK: No costovertebral angle tenderness, no point tenderness along the course of the spine. The patient does report some dull discomfort on the left side. GENITOURINARY: Not repeated. EXTREMITIES: Appear within normal limits. MUSCULOSKELETAL: The patient is able to move all 4 extremities against gravity without any difficulty. LABORATORY STUDIES: Patient's microbiology results still show Streptococcus agalactiae on his urine culture from 06/24/2018. Blood cultures have not grown any organisms. The patient's current white count 13.3 thousand, hemoglobin is 10.0 down from 14.1 at admission. Hematocrit is 28.1 down from 39.6 at admission. Serum chemistry showed the patient's current potassium of 3.6, creatinine is 0.97 improved. Estimated GFR is 83 with a current blood urea nitrogen of 12. No urinalyses have been performed at admission, the patient did appear to be relatively dehydrated with a urine gravity of 1.030 and greater than 50 red cells per high power field with no white cells seen. ASSESSMENT AND PLAN: This is a patient with spontaneous rupture of some features associated with his left kidney, presumably a class II F cyst or higher versus a septic embolus. The patient may have had a class 4 cyst or renal cancer in this area, although there is no clear evidence of enhancement on the current CT scan. The claw sign associated with the patient's kidney demonstrates that this process originating within the parenchyma of the kidney itself. There is interval growth of the patient's hematoma without any evidence of active extravasation from the collecting system or the circulatory system on the contrast phase and expiratory phase imaging. This finding suggests one of three possibilities for this patient's presentation, either a spontaneous rupture or hemorrhagic type cyst presentation. A renal cell carcinoma running the tumor with necrosis and rupture or a septic embolus. The patient's individual studies remain pending due to the expansion of the patient' s hematoma since last evaluation and progressive drop in his hematocrit over time. I think this patient is not safe for discharge home and needs continued observation in appropriate setting. I would strictly avoid any anticoagulants in this patient including anticoagulation for DVT prophylaxis. DVT prophylaxis should be performed using GISELA hose and sequential compression devices only. No surgical interventions are planned, so this patient may continue to eat. If this patient was to have an acute hemorrhage or bleed, initial management would be embolization of the kidney followed by a nephrectomy. At the present time, I do not anticipate any interventions on the patient's kidney other than observation. The patient probably will be able to have an imaging study on Thursday and may be ready to go home at that point. I discussed with the patient the normal care of a perinephric hematoma with rupture of parts of the kidney is bed rest followed by sequential imaging. At the present time, I think the patient will not be able to continue his current line of work for at least a month. Over 35 minutes of subsequent evaluation and assessment time was spent in the care of this patient, over of which was in face to face evaluation, or in coordination of care, or in communication with the patient's family regarding care, exclusive of any procedures performed, [id number]. [id number]
[2018-06-26] MEDS: Acetaminophen 325 MG TAB PO PRN (16:22)
[2018-06-26] MEDS: Nicotine 21 MG PATCH TOP SCH (20:56)
[2018-06-27 07:27] LABS: #Eosinphils 0.7 thou/uL (0.0-0.7); #Lymphocytes 1.6 thou/uL (1.20-3.40); #Monocytes 1.2 thou/uL (0.11-0.59); #Neutrophils 10.2 thou/uL (1.40-6.50); %Basophils 0.2 % (0.0-1.0); %Eosinophils 4.9 % (0.0-10.0); %Lymphocytes 11.4 % (21.0-51.0); %Neutrophils 74.4 % (42.0-75.0); Hemoglobin 10.5 g/dL (14.0-18.0); Mean Corpuscular HGB CONC 35.8 g/dL (32.0-36.0); Mean Corpuscular Hemoglobin 32.4 pg (27.0-31.0); Mean Corpuscular Volume 90.4 fL (78.0-98.0); Mean Platelet Volume 5.7 fL (7.4-10.4); Platelet Count 268 thou/uL (130-400); RBC Distribution Width 11.7 % (11.5-14.5); Red Blood Cell (RBC) Count 3.23 mill/uL (4.70-6.10); White Blood Cell (WBC) Count 13.7 thou/uL (4.8-10.8)
[2018-06-27 07:45] LABS: Anion Gap 11 mmol/L (10-20); BUN (Urea Nitrogen) 11 mg/dL (8.9-20.6); Calc. Creatinine Clearance 128 mL/min (70-130); Calcium 8.4 mg/dL (7.8-10.44); Carbon Dioxide 25 mmol/L (22-29); Chloride 100 mmol/L (98-107); Estimated GFR-MDRD 77; Glucose 124 mg/dL (70-105); Potassium 3.5 mmol/L (3.5-5.1); Sodium 132 mmol/L (136-145)
[2018-06-27] MEDS: Morphine 4 MG/ML VIAL IV PRN ×4 (08:00→23:55)
[2018-06-27] MEDS: Famotidine 20 MG TAB PO SCH ×2 (08:04→20:59)
[2018-06-27] MEDS: Vancomycin HCl 1.5 GM in Sodium Chloride 0.9% 250 ML 300 ML IVPB SCH ×2 (08:05→20:58)
--- NOTE | 2018-06-27 09:19 | PDOC.PN ---
- Subjective Encounter Start Date: 06/27/18 Encounter Start Time: 07:00 feels better, last fever yesterday, has low grade fever, pain controlled with pain meds, - Objective Resuscitation Status: Resuscitation Status FULL:Full Resuscitation MAR Reviewed: Yes Vital Signs & Weight: Vital Signs (12 hours) Temp Pulse Resp BP Pulse Ox 06/27/18 08:33 99.7 F H 87 20 147/87 H 94 L 06/27/18 08:00 99.7 F H 87 16 147/87 H 94 L 06/27/18 03:41 99.0 F 97 16 131/81 94 L 06/26/18 23:21 99.7 F H 95 16 132/78 93 L Weight Weight 226 lb 14.4 oz I&O: 06/26/18 06/27/18 06/28/18 06:59 06:59 06:59 Intake Total 1819 2019 Balance 1819 2019 Result Diagrams: 06/27/18 07:19 06/27/18 07:19 Radiology Reviewed by me: Yes (echo reviewed) Phys Exam - Physical Examination Constitutional: NAD HEENT: PERRLA, moist MMs, sclera anicteric Neck: no JVD, supple Respiratory: no wheezing, no rales, no rhonchi Cardiovascular: RRR, no significant murmur, no rub Gastrointestinal: soft, non-tender, no distention, positive bowel sounds Musculoskeletal: no edema, pulses present Neurological: non-focal, normal sensation, moves all 4 limbs Psychiatric: normal affect, A&O x 3 Skin: no rash, normal turgor Dx/Plan (1) Acute left flank pain Code(s): R10.9 - UNSPECIFIED ABDOMINAL PAIN Status: Acute (2) Hemorrhage of left kidney Code(s): N28.89 - OTHER SPECIFIED DISORDERS OF KIDNEY AND URETER Status: Acute (3) Anemia due to acute blood loss Code(s): D62 - ACUTE POSTHEMORRHAGIC ANEMIA Status: Acute (4) Leucocytosis Code(s): D72.829 - ELEVATED WHITE BLOOD CELL COUNT, UNSPECIFIED Status: Acute Qualifiers: Leukocytosis type: bandemia Qualified Code(s): D72.825 - Bandemia (5) Microscopic hematuria Code(s): R31.29 - OTHER MICROSCOPIC HEMATURIA Status: Acute (6) Cannabis abuse Code(s): F12.10 - CANNABIS ABUSE, UNCOMPLICATED Status: Chronic (7) Obesity (BMI 30.0-34.9) Code(s): E66.9 - OBESITY, UNSPECIFIED Status: Chronic (8) Tobacco abuse Code(s): Z72.0 - TOBACCO USE Status: Chronic (9) Sepsis Code(s): A41.9 - SEPSIS, UNSPECIFIED ORGANISM Status: Acute - Plan cont current plan of care, continue antibiotics * blood culture negative so far, echo unremarkable, no need of SONYA for now * pain controlled * now H & H stable * on rocephin and vancomycin for now * medication reviewed as below * symptomatic treatment * repeat labs tomorrow * expecting discharge soon Review of Systems - Review of Systems Constitutional: fever. negative: chills, sweats, weakness, malaise, other ENT: negative: Ear Pain, Ear Discharge, Nose Pain, Nose Discharge, Nose Congestion, Mouth Pain, Mouth Swelling, Throat Pain, Throat Swelling, Other Respiratory: negative: Cough, Dry, Shortness of Breath, Hemoptysis, SOB with Excertion, Pleuritic Pain, Sputum, Wheezing Cardiovascular: negative: chest pain, palpitations, orthopnea, paroxysmal nocturnal dyspnea, edema, light headedness, other Gastrointestinal: negative: Nausea, Vomiting, Abdominal Pain, Diarrhea, Constipation, Melena, Hematochezia, Other Genitourinary: negative: Dysuria, Frequency, Incontinence, Hematuria, Retention , Other Musculoskeletal: negative: Neck Pain, Shoulder Pain, Arm Pain, Back Pain, Hand Pain, Leg Pain, Foot Pain, Other Skin: negative: Rash, Lesions, Trey, Bruising, Other - Medications/Allergies Allergies/Adverse Reactions: Allergies Allergy/AdvReac Type Severity Reaction Status Date / Time No Known Allergies Allergy Verified 06/24/18 04:59 Medications: Current Medications Acetaminophen (Tylenol) 650 mg PO Q4H PRN PRN Reason: Headache/Fever or Pain Last Admin: 06/26/18 16:22 Dose: 650 mg Hydrocodone Bitart/Acetaminophen ([place] 10/325) 1 tab PO Q4H PRN PRN Reason: Moderate Pain (4-6) Last Admin: 06/26/18 23:47 Dose: 1 tab Al Hydroxide/Mg Hydroxide (Maalox) 30 ml PO Q6H PRN PRN Reason: Heartburn or Indigestion Last Admin: 06/26/18 10:44 Dose: 30 ml Artificial Tears (Tears Naturale) 0 drop EA EYE PRN PRN PRN Reason: Dry Eyes Clonidine (Catapres) 0.1 mg PO Q4H PRN PRN Reason: Systolic BP > 180 Famotidine (Pepcid) 20 mg PO BID COUNT INCLUDES THE [facility] Last Admin: 06/27/18 08:04 Dose: 20 mg Guaifenesin (Robitussin Sf) 200 mg PO Q4H PRN PRN Reason: Cough Hydralazine HCl (Apresoline) 10 mg SLOW IVP Q4H PRN PRN Reason: Systolic BP > 180 Ceftriaxone Sodium 1 gm/ (Sodium Chloride) 100 mls @ 200 mls/hr IVPB Q24HR COUNT INCLUDES THE [facility] Last Admin: 06/26/18 10:41 Dose: 100 mls Vancomycin HCl 1.5 gm/ Sodium (Chloride) 300 mls @ 200 mls/hr IVPB 0800,1999 COUNT INCLUDES THE [facility] Last Admin: 06/27/18 08:05 Dose: 300 mls Loperamide HCl (Imodium) 2 mg PO PRN PRN PRN Reason: Diarrhea/Loose Stools Loratadine (Claritin) 10 mg PO DAILYPRN PRN PRN Reason: Sinus Symptoms Magnesium Hydroxide (Milk Of Magnesium) 30 ml PO DAILYPRN PRN PRN Reason: Constipation Last Admin: 06/26/18 08:45 Dose: 30 ml Mineral Oil/White Petrolatum (Eucerin Cream) 0 gm TOP BIDPRN PRN PRN Reason: Dry Skin Miscellaneous Medication (Pharmacy To Dose) 1 each IVPB PRN PRN PRN Reason: . Morphine Sulfate (Morphine) 4 mg IV Q2H PRN PRN Reason: Pain Last Admin: 06/27/18 08:00 Dose: 4 mg Nicotine (Nicoderm Patch) 21 mg TOP Q24HR COUNT INCLUDES THE [facility] Last Admin: 06/26/18 20:56 Dose: 21 mg Ondansetron HCl (Zofran Odt) 4 mg PO Q6H PRN PRN Reason: Nausea/Vomiting Ondansetron HCl (Zofran) 4 mg IVP Q6H PRN PRN Reason: Nausea/Vomiting Phenol (Chloraseptic [place] 180 Ml Bot) 0 ml PO PRN PRN PRN Reason: Sore Throat Senna (Senokot) 2 tab PO HSPRN PRN PRN Reason: Constipation Sodium Chloride (Flush - Normal Saline) 10 ml IVF Q12HR [facility]CO Last Admin: 06/26/18 20:56 Dose: 10 ml Sodium Chloride (Flush - Normal Saline) 10 ml IVF PRN PRN PRN Reason: Saline Flush Sodium Chloride ([place] Nasal [place] 0.65%) 0 ml EA NARE QIDPRN PRN PRN Reason: Nasal Congestion Zolpidem Tartrate (Ambien) 5 mg PO HSPRN PRN PRN Reason: Insomnia
[2018-06-27] MEDS: cefTRIAXone\\ROCEPHIN 1 GM in Sodium Chloride 0.9% 100 ML IVPB SCH (11:57)
[2018-06-27] MEDS: HYDROcodone/Acetaminophen 10/325 mg Tablet PO PRN ×2 (12:57→20:59)
--- NOTE | 2018-06-27 14:39 | CON ---
DATE OF CONSULTATION: 06/27/2018 INITIAL REASON FOR CONSULTATION: Spontaneous left-sided renal bleed with perinephric hematoma. PROBLEM LIST Hematoma of left kidney, initial encounter, S37.012A Left flank pain, R10.9 UTI (urinary tract infection), N39.0 HISTORY OF PRESENT ILLNESS: Mr. Harshal Beth is a very pleasant 48-year-old white male who works in [employer] trades. The patient develops a spontaneous left-sided flank pain attack, presented to the Emergency Department of the [facility] on 06/24/[address] scanning demonstrating left nephric to perinephric bleed. The patient has undergone one subsequent imaging study which did demonstrate some increase in overall size of the perinephric hematoma and due to the patient's carious teeth and urine culture positive for Streptococcus agalactiae, did undergo TTE procedure. The patient's study has been read and this shows no vegetations. The resolution of the study is not adequate to completely exclude a vegetation process. INTERVAL ISSUES: The patient has done well overnight. He has had some pain that required morphine, reports some constipation secondary to narcotic use. He is having a little bit more pain that he had the day prior. PHYSICAL EXAMINATION: VITAL SIGNS: The patient's current temperature is 99.7, his T-max for the last 24 hours is 100.1 degrees F on 06/26/2018 at 4:00 p.m. The patient's laboratories otherwise show general stability with a pulse rate currently 87, respiratory rate 20, blood pressure is 147/87. HEENT: Extraocular movements are intact. Sclerae are anicteric. Oropharynx is clear. NECK: Supple. LUNGS: Clear to auscultation bilaterally. CARDIAC: Regular rate and rhythm without murmur, rub or gallop. ABDOMEN: Soft and moderately distended. There is a left-sided discomfort in the flank and left lateral aspect of the patient's abdomen. Percussion reveals increased resonance in all 4 quadrants consistent with a degree of ileus. EXTREMITIES: Appear within normal limits. The patient is still ambulatory. LABORATORY STUDIES: The patient's white count is 13.7 thousand, slightly up from yesterday. He has consistently elevated white count since admission. The patient's left shift has improved from yesterday with current percent neutrophils of 74.4% down from 79.5% yesterday, the ANC remains elevated at 10.2 thousand. Serum chemistry shows blood urea nitrogen of 11 with creatinine 1.04. TTE study report by Dr. Jeronimo from 06/26/2018. The patient's ejection fraction is 50%-55%. There is normal diastolic function. There is no regional wall motion abnormalities. The ventricles and atria all appear normal. There is mild mitral regurgitation present. Aortic valve leaflets are not identified on the study. The tricuspid valve is structurally normal with mild tricuspid regurgitation. Pulmonic valve is not well visualized. Aortic root dimensions are within normal limits. There is no evidence of pericardial effusion either. ASSESSMENT AND PLAN: 1. Concern for cardiac vegetations if the suspicion is high. The patient should undergo a SONYA study as the TTE was not informative. 2. ID, the patient's white count remains elevated, I think the patient probably should be transitioned to oral antibiotics today as there are plans for discharge recommending that he be placed on Omnicef or Cefzil. 3. Perinephric hematoma. Patient will undergo a CT scan of the abdomen and pelvis tomorrow morning to assess whether there was continued bleeding or not. At present time, I plan observation for this patient if he has an acute bleed embolization will be the correct course of action. 4. Root causes of the patient's spontaneous perinephric bleed. The patient's perinephric bleed is either due to a hemorrhagic cyst rupture. A renal mass, tumor or possibly septic emboli given his remarkably carious teeth. Further evaluation and management of the potential infectious causes to the Hospitalist Service. With respect to management of cyst and possible renal mass , I would recommend the patient undergo observation for his perinephric hematoma unless there is evidence of active bleeding on tomorrow study. The patient would be expected to have significant pain symptoms for at least 3 months and probably will require narcotics over that time period and NSAIDs are contraindicated in the setting. Other anticoagulants should be strictly avoided as far as DVT prophylaxis, GISELA hose and sequential compression devices as there are concerns regarding DVTs or pulmonary emboli. The patient should undergo IVC filter placement. Over 35 minutes of subsequent evaluation and assessment time was spent in the care of this patient, over of which was in face to face evaluation, or in coordination of care, or in communication with the patient's family regarding care, exclusive of any procedures performed, [id number]. [facility]
[2018-06-27] MEDS: Acetaminophen 325 MG TAB PO PRN (16:54)
[2018-06-27] MEDS: Cefprozil 250 MG TAB PO SCH (20:59)
[2018-06-27] MEDS: Nicotine 21 MG PATCH TOP SCH (21:00)
[2018-06-28] MEDS: Acetaminophen 325 MG TAB PO PRN ×2 (04:30→12:41)
[2018-06-28 04:55] LABS: Anion Gap 16 mmol/L (10-20); BUN (Urea Nitrogen) 9 mg/dL (8.9-20.6); Calc. Creatinine Clearance 128 mL/min (70-130); Calcium 8.5 mg/dL (7.8-10.44); Carbon Dioxide 21 mmol/L (22-29); Chloride 100 mmol/L (98-107); Estimated GFR-MDRD 77; Glucose 123 mg/dL (70-105); Potassium 3.7 mmol/L (3.5-5.1); Sodium 133 mmol/L (136-145)
[2018-06-28 05:55] LABS: Band 4 % (5-11); Eosinophils 1 % (0-10); Hemoglobin 10.3 g/dL (14.0-18.0); Lymphocytes 12 % (21-51); MDiff Complete? YES; Mean Corpuscular HGB CONC 35.9 g/dL (32.0-36.0); Mean Corpuscular Hemoglobin 32.2 pg (27.0-31.0); Mean Corpuscular Volume 89.7 fL (78.0-98.0); Monocytes 4 % (0-10); Neutrophil 79 % (42-75); Platelet Count 302 thou/uL (130-400); RBC Distribution Width 11.7 % (11.5-14.5); Red Blood Cell (RBC) Count 3.19 mill/uL (4.70-6.10); White Blood Cell (WBC) Count 13.9 thou/uL (4.8-10.8)
[2018-06-28] MEDS: Cefprozil 250 MG TAB PO SCH (08:08)
[2018-06-28] MEDS: Famotidine 20 MG TAB PO SCH ×2 (08:09→20:45)
[2018-06-28] MEDS: Vancomycin HCl 1.5 GM in Sodium Chloride 0.9% 250 ML 300 ML IVPB SCH (08:57)
--- NOTE | 2018-06-28 10:12 | CT ---
CT OF THE ABDOMEN WITH AND WITHOUT IV CONTRAST: INDICATION: History of ruptured left kidney with perinephric hematoma and left flank pain. COMPARISON: Recent CT of the abdomen with and without contrast dated 06/26/18. FINDINGS: Again seen is a large perinephric hematoma; however, the hematoma itself appears slightly smaller ángel suring 10.5 x 9.0 x 11.1 cm where previously the collection measured 11.0 x 9.2 x 11.5 cm. What was not demonstrated on prior exam is a small focal area of contrast extravasation seen within the centra l aspect of the hematoma on image 38 of series 3. This appears to be a blush of contrast that extend s from the linear density from the region of the left renal hilum on images 41 through 38 of series 3 . No definite enhancing mass is grossly evident. There is some perinephric inflammatory stranding s till present. The liver, spleen, pancreas, and adrenal glands are unremarkable. The right kidney is normal-appeari ng. There is some excretion still from the left kidney on the delayed phase images. No acute osseou s abnormality is evident. IMPRESSION: 1. Small focus of active extravasation demonstrated now on the current examination from the superior aspect of the left kidney. However, the perinephric hematoma appears slightly smaller than on the c omparison study dated 06/26/18. Findings were discussed with Dr. Andrade on 06/28/18 at 8:50 a.m. As a co nservative measure, a vascular surgical consultation may be helpful to evaluate the need for potentia l embolization of this focal area of extravasation. Continued clinical and imaging followup is recom mended. No definite enhancing mass lesion is evident within the hematoma collection. A delayed foll owup CT multiphase examination of the abdomen when the hematoma has relatively cleared(6 to 8 weeks) may be helpful to evaluate for underlying renal lesion. 2. The remainder of the examination appears unchanged from the comparison study. CODE CR POS: SENDY
--- NOTE | 2018-06-28 10:30 | PDOC.PN ---
- Subjective Encounter Start Date: 06/28/18 Encounter Start Time: 07:00 today pt has fever again, he still has left flank pain - Objective Resuscitation Status: Resuscitation Status FULL:Full Resuscitation MAR Reviewed: Yes Vital Signs & Weight: Vital Signs (12 hours) Temp Pulse Resp BP Pulse Ox 06/28/18 08:00 98.8 F 83 20 126/72 92 L 06/28/18 04:10 101.2 F H 06/27/18 23:52 98.8 F Weight Weight 226 lb 14.4 oz I&O: 06/27/18 06/28/18 06/29/18 06:59 06:59 06:59 Intake Total 2019 1550 Balance 2019 1550 Result Diagrams: 06/28/18 04:24 06/28/18 04:24 Radiology Reviewed by me: Yes (CT abdomen reviewed) Phys Exam - Physical Examination Constitutional: NAD HEENT: PERRLA, moist MMs, sclera anicteric Neck: no JVD, supple Respiratory: no wheezing, no rales, no rhonchi Cardiovascular: RRR, no significant murmur, no rub Gastrointestinal: soft, non-tender, no distention, positive bowel sounds left flank pain Musculoskeletal: no edema, pulses present Neurological: non-focal, normal sensation, moves all 4 limbs Psychiatric: normal affect, A&O x 3 Skin: no rash, normal turgor Dx/Plan (1) Acute left flank pain Code(s): R10.9 - UNSPECIFIED ABDOMINAL PAIN Status: Acute (2) Hemorrhage of left kidney Code(s): N28.89 - OTHER SPECIFIED DISORDERS OF KIDNEY AND URETER Status: Acute (3) Anemia due to acute blood loss Code(s): D62 - ACUTE POSTHEMORRHAGIC ANEMIA Status: Acute (4) Leucocytosis Code(s): D72.829 - ELEVATED WHITE BLOOD CELL COUNT, UNSPECIFIED Status: Acute Qualifiers: Leukocytosis type: bandemia Qualified Code(s): D72.825 - Bandemia (5) Microscopic hematuria Code(s): R31.29 - OTHER MICROSCOPIC HEMATURIA Status: Acute (6) Cannabis abuse Code(s): F12.10 - CANNABIS ABUSE, UNCOMPLICATED Status: Chronic (7) Obesity (BMI 30.0-34.9) Code(s): E66.9 - OBESITY, UNSPECIFIED Status: Chronic (8) Tobacco abuse Code(s): Z72.0 - TOBACCO USE Status: Chronic (9) Sepsis Code(s): A41.9 - SEPSIS, UNSPECIFIED ORGANISM Status: Acute - Plan cont current plan of care, continue antibiotics * for his recurrent fever, will consult ID ? fever may be reactive to hematoma vs hematoma getting infected, clinically pt is not septic * continue vancomycin and cefzil * today ct showed extravasation, will consult CT surgeon for evaluation for any embolic treatment * medication reviewed as below * symptomatic treatment. * his hb is now stable, wbc count still high * not ready for discharge yet Review of Systems - Review of Systems Constitutional: fever. negative: chills, sweats, weakness, malaise, other Eyes: negative: Pain, Vision Change, Conjunctivae Inflammation, Eyelid Inflammation, Redness, Other ENT: negative: Ear Pain, Ear Discharge, Nose Pain, Nose Discharge, Nose Congestion, Mouth Pain, Mouth Swelling, Throat Pain, Throat Swelling, Other Respiratory: negative: Cough, Dry, Shortness of Breath, Hemoptysis, SOB with Excertion, Pleuritic Pain, Sputum, Wheezing Cardiovascular: negative: chest pain, palpitations, orthopnea, paroxysmal nocturnal dyspnea, edema, light headedness, other Gastrointestinal: negative: Nausea, Vomiting, Abdominal Pain, Diarrhea, Constipation, Melena, Hematochezia, Other Genitourinary: negative: Dysuria, Frequency, Incontinence, Hematuria, Retention , Other Musculoskeletal: negative: Neck Pain, Shoulder Pain, Arm Pain, Back Pain, Hand Pain, Leg Pain, Foot Pain, Other Skin: negative: Rash, Lesions, Trey, Bruising, Other - Medications/Allergies Allergies/Adverse Reactions: Allergies Allergy/AdvReac Type Severity Reaction Status Date / Time No Known Allergies Allergy Verified 06/24/18 04:59 Medications: Current Medications Acetaminophen (Tylenol) 650 mg PO Q4H PRN PRN Reason: Headache/Fever or Pain Last Admin: 06/28/18 04:30 Dose: 650 mg Hydrocodone Bitart/Acetaminophen ([place] 10/325) 1 tab PO Q4H PRN PRN Reason: Moderate Pain (4-6) Last Admin: 06/27/18 20:59 Dose: 1 tab Al Hydroxide/Mg Hydroxide (Maalox) 30 ml PO Q6H PRN PRN Reason: Heartburn or Indigestion Last Admin: 06/26/18 10:44 Dose: 30 ml Artificial Tears (Tears Naturale) 0 drop EA EYE PRN PRN PRN Reason: Dry Eyes Cefprozil (Cefzil) 500 mg PO BID [facility] Last Admin: 06/28/18 08:08 Dose: 500 mg Clonidine (Catapres) 0.1 mg PO Q4H PRN PRN Reason: Systolic BP > 180 Famotidine (Pepcid) 20 mg PO BID [facility] Last Admin: 06/28/18 08:09 Dose: 20 mg Guaifenesin (Robitussin Sf) 200 mg PO Q4H PRN PRN Reason: Cough Hydralazine HCl (Apresoline) 10 mg SLOW IVP Q4H PRN PRN Reason: Systolic BP > 180 Vancomycin HCl 1.5 gm/ Sodium (Chloride) 300 mls @ 200 mls/hr IVPB [id number] [facility] Last Admin: 06/28/18 08:57 Dose: 300 mls Loperamide HCl (Imodium) 2 mg PO PRN PRN PRN Reason: Diarrhea/Loose Stools Loratadine (Claritin) 10 mg PO DAILYPRN PRN PRN Reason: Sinus Symptoms Magnesium Hydroxide (Milk Of Magnesium) 30 ml PO DAILYPRN PRN PRN Reason: Constipation Last Admin: 06/26/18 08:45 Dose: 30 ml Mineral Oil/White Petrolatum (Eucerin Cream) 0 gm TOP BIDPRN PRN PRN Reason: Dry Skin Miscellaneous Medication (Pharmacy To Dose) 1 each IVPB PRN PRN PRN Reason: . Morphine Sulfate (Morphine) 4 mg IV Q2H PRN PRN Reason: Pain Last Admin: 06/27/18 23:55 Dose: 4 mg Nicotine (Nicoderm Patch) 21 mg TOP Q24HR [facility] Last Admin: 06/27/18 21:00 Dose: 21 mg Ondansetron HCl (Zofran Odt) 4 mg PO Q6H PRN PRN Reason: Nausea/Vomiting Ondansetron HCl (Zofran) 4 mg IVP Q6H PRN PRN Reason: Nausea/Vomiting Phenol (Chloraseptic [place] 180 Ml Bot) 0 ml PO PRN PRN PRN Reason: Sore Throat Senna (Senokot) 2 tab PO HSPRN PRN PRN Reason: Constipation Last Admin: 06/28/18 09:04 Dose: 2 tab Sodium Chloride (Flush - Normal Saline) 10 ml IVF Q12HR [facility] Last Admin: 06/28/18 08:09 Dose: 10 ml Sodium Chloride (Flush - Normal Saline) 10 ml IVF PRN PRN PRN Reason: Saline Flush Sodium Chloride ([place] Nasal [place] 0.65%) 0 ml EA NARE QIDPRN PRN PRN Reason: Nasal Congestion Zolpidem Tartrate (Ambien) 5 mg PO HSPRN PRN PRN Reason: Insomnia
[2018-06-28] MEDS: HYDROcodone/Acetaminophen 10/325 mg Tablet PO PRN ×2 (11:02→15:06)
--- NOTE | 2018-06-28 11:15 | CON ---
DATE OF CONSULTATION: 06/28/2018 REASON FOR CONSULTATION: Evaluate patient with a left perinephric hematoma for potential embolizatio n. HISTORY OF PRESENT ILLNESS: Mr. Krishnamurthy was admitted with left flank pain. At the time of admission CT scan showed a large left perirenal hematoma. He has been managed conservatively in the hospital. He has been on no blood thinners. His hemoglobin was 13 at the time of admission, it is 10.3 today which has been stable over the last 48 hours. He has been rescanned on multiple occasions. The scan today reported a previously unnoted blush of contrast within the hematoma. The hematoma is actually smaller on CT scan today than it was previously. The patient's hemodynamics have been stable. He h as had a temperature up to 101.2. He has no history of previous trauma. 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 He does not use IV drugs. PAST MEDICAL HISTORY: None. PAST SURGICAL HISTORY: Umbilical hernia. PSYCHIATRIC HISTORY: He is bipolar, but not under treatment. SOCIAL HISTORY: As above. ALLERGIES: None. MEDICATIONS AT HOME: Ibuprofen p.r.n. LABORATORY: Hemoglobin trends as above. White blood cell count is 13.9, which is also stable over t he last 48 hours. Creatinine is 1.04. ASSESSMENT AND PLAN: I have discussed the situation with Dr. Andrade. This is a small blush that I th ink was probably on his previous scans, but unnoted due to timing of the scans being different. The hematoma itself has shrunk some. He also has a stable hemoglobin with stable hemodynamics. Embolization is an option. At this point, I would lean towards not pursuing embolization due to him being 4 days out from his presentation and no significant change in the size of the hematoma. If cou rse of things were to change, we can certainly readdress this and plan angiograms and embolization in the future.
[2018-06-28] MEDS ORDERED: Polyethylene Glycol 3350 17 GM Packet PO SCH (13:45)
--- NOTE | 2018-06-28 13:52 | CON ---
DATE OF CONSULTATION: 06/28/2018 REASON FOR CONSULTATION: Spontaneous renal hemorrhage. HISTORY OF PRESENT ILLNESS: A 48-year-old who has a history of chronic smoking , but otherwise no previous encounters with the Health Services and was not taking any medication except for ibuprofen and aspirin for management of pain associated with dental problems who was working and developed progressively worsening left flank and groin pain which progressed to the extent that he had to come to the emergency room. At the emergency room, CT of abdomen and pelvis showed left renal hemorrhage. The patient has been controlled with pain medication. He has developed fever and has been started on antimicrobial therapy as well. Vascular Surgery has been consulted regarding possibility of embolization, but it was felt at the time that conservative management would be attempted first. Currently, Mr. Beth is sitting by the bedside. He denies any headaches, visual symptoms, sore throat, odynophagia, or dysphagia. The pain is localized to the left flank region, wrapping around the groin, left side. The pain is quite intense, he grades at anywhere from 8-10/10 now is down after opioid medication that is around 4/10. No abdominal pain, no dysuria , no hematuria or at least microscopic hematuria, no diarrhea, no constipation, no joint symptoms. PAST MEDICAL HISTORY: Chronic smoking, chronic dental problems for which he takes NSAIDs. Has not been to the dentist because of lack of insurance or funds. ALLERGIES: None. CURRENT MEDICATIONS: Tylenol, Lyman, Maalox, cefprozil, Catapres, Pepcid, Imodium, Claritin, ondansetron, vancomycin. FAMILY HISTORY: Noncontributory. SOCIAL HISTORY: He works in [employer] business and he is and has 1 child and was a smoker until this admission, daily smoker. PHYSICAL EXAMINATION: VITAL SIGNS: T-max 102, is currently 101.2; blood pressure 120/70; pulse 83; respirations 20. SKIN: Shows a few tattoos in the upper extremities. No lymphadenopathy. HEENT: Ocular movements conjugate. Oral cavity normal except patient has numerous teeth in place with some decay and gum disease. NECK: Supple, no jugular vein distention or carotid bruits. LUNGS: Left lung with diminished breath sounds at the bases. No crackles or wheezing. HEART: S1, S2, regular rate without murmurs. No S3, S4. ABDOMEN: Soft, not distended or tender. There is flank tenderness which is quite intense. EXTREMITIES: No joint inflammatory activity. Pulses 1+ in dorsalis pedis. Plantar responses are flexure. NEUROLOGIC: Cognitive function appears to be intact. LABORATORY DATA: White cell count started at 14,000, now is 13,900 about the same, hemoglobin 10.3, platelets 302. Sodium 133, creatinine 1.04. Liver profile normal. Glucose 193. Lactic acid 1.5. Urinalysis greater than 50 rbc' s, no wbc's. Microbiology with group B strep in small amounts in the urine. Blood cultures thus far negative, four sets. Abdomen CT with a small focus of active extravasation demonstrated current exam from superior aspect of the left kidney, perinephric hematoma appears slightly smaller on the comparison study. Consultation was recommended which was completed. Echocardiogram showed a normal EF and minor valvular regurgitation. ASSESSMENT: Chronic smoking with a spontaneous left kidney hemorrhage and fever , after admission. DISCUSSION: Spontaneous kidney hemorrhage or [place] syndrome is usually associated with a variety of kidney abnormalities including angiomyolipoma, renal cysts, sarcoma, other types of malignancies including renal cell carcinoma. Some cases of pyelonephritis, have been identified as well and vascular malformations with aneurysms. The patient's with perinephric hematomas resulting from a spontaneous kidney hemorrhage may develop superinfection of the hematoma and fever associated with it. In this case, the group B strep may have colonized the knee area. Possibility of endocarditis is less likely in view of the negative blood cultures. The management will include transition to Rocephin, discontinue the remainder antimicrobials, pain control and monitoring the status of the bleeding. Some patients will require intervention either open surgical intervention or embolization, others can be managed conservatively. Again, renal masses are the main cause of [place] syndrome and conservative management with IV antibiotics and then transitioned to oral antimicrobials with outpatient analgesia would be the ideal outcome in this case. STEFFANIED
[2018-06-28 14:09] LABS: HIV (1/2) Antibody/Antigen Non-Reactive (NonReactive); HIV 1/2 INDEX 0.07 S/CO (<1.00); Hep C IgG Ab Non-Reactive (NonReactive); Hep C Index 0.11 S/CO (0-0.79)
[2018-06-28] MEDS: cefTRIAXone\\ROCEPHIN 2 GM in Sodium Chloride 0.9% 100 ML IVPB SCH (14:53)
--- NOTE | 2018-06-28 19:52 | CON ---
DATE OF CONSULTATION: 06/28/2018 REASON FOR INITIAL CONSULTATION: Spontaneous left renal hemorrhage. PROBLEM LIST Hematoma of left kidney, initial encounter, S37.012A Left flank pain, R10.9 UTI (urinary tract infection), N39.0 HISTORY OF PRESENT ILLNESS: Mr. 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 He developed acute spontaneous renal to perirenal hemorrhage on 06/24/2018, subsequently presented to the emergency department where he underwent CT scanning and scanning demonstrating presence of the hemorrhage on the left side. The patient overnight has undergone a repeat CT scan imaging study and the study does show some actual shrinkage of the perinephric hematoma; however, it appears to show a very tiny bleed associated with the kidney. This raises the question whether this patient is currently undergoing active bleeding present time. Careful evaluation of the CT scan shows what appears to be fragmentation of the parenchyma of the kidney and a clot-like sign which looks on today's study more like it is turning into a smear indicating the patient possibly had a cyst abscess or tumor mass in the area of the bleed. At the present time, there is no clear evidence that there was a tumor, although this is a common cause for these type of events. The patient does have a positive urine culture, albeit at 10,000 colony forming units per mL and did not have any evidence of hematogenous spread of microorganisms. The patient does have numerous carious teeth which potentially could be a source of infection. The patient also was taking large amounts of NSAIDs for pain at home. This could also be a contributor. He is a smoker until the arrival at the hospital. This may also lead to vascular disease. Today, Mr. Beth is continuing to have left-sided flank pain symptoms. He reports narcotics seem to be giving him a degree of pain relief. His vital signs have been stable. He is not tachycardic. He is neither hypertensive nor hypotensive at this point. His main issue has been pain control. PHYSICAL EXAMINATION: VITAL SIGNS: The patient has continued to have a fever spiking today up to 101.2 on several occasions. Vital signs otherwise completely within normal limits with a current pulse 83, respiratory rate 20, room air O2 saturation is 92%. Blood pressure at last check was 126/72. GENERAL: This is a pleasant white male in no apparent distress. He is a good historian. HEENT: Extraocular movements are intact. Sclerae are anicteric. Oropharynx is clear. NECK: Supple. LUNGS: Clear bilaterally. CARDIAC: The patient has a regular rate and rhythm. ABDOMEN: Soft and nontender anteriorly. The patient reports some left-sided back pain. GENITOURINARY: Deferred as we have done that recently. EXTREMITIES: No current GISELA hose or sequential compression devices and I am ordering that for 24-hour today LABORATORY STUDIES: Hemoglobin is currently at 10.3 down from 13.1 at admission and hematocrit is 28.6 down from 36.9 at admission, white blood cell count remains elevated currently at 13,900. There is a slight left shift today at 79% neutrophils. Serum chemistry shows the patient maintains reasonable renal function with a current blood urea nitrogen of 9 and creatinine 1.04. He is not prerenal on today's evaluation. Consultation findings following consultants evaluate the patient and his laboratory and radiologic imaging studies today: Dr. Blanco from Infectious Disease is recommending continuation of Rocephin for the present time with transition to oral medications as an outpatient. In addition, Dr. Steve Aranda reviewed his study including a CT scan from today which demonstrated possible additional extravasation and is recommending continued observation at this point as he does not believe this amount of bleeding would be easily visible under fluorography at the present time. CT scan findings as outlined above were performed on three phase study today demonstrating punctate bleeding in the area of presumed rupture of the patient' s kidney. Overall, hematoma size appears to be shrinking at least by measurements. The patient's kidney has a more kidney like appearance and the clot-like feature of the area of presumed rupture appears to be more definite on today's study. There is once again no evidence of extravasation of urine from the collecting system on the study. ASSESSMENT AND PLAN: Spontaneous left renal hemorrhage with a large perinephric hematoma, currently still encapsulated and currently shrinking in overall size, but with evidence of active bleeding. The patient's bleeding is so small that it probably would not show up on fluorographic evaluation; therefore cannot be embolized conveniently. The best plan for this is medical management with lowering of the patient's blood pressure and strict avoidance of blood clots using nonanticoagulant methods. The patient needs to be using GISELA hose and sequential compression devices / and also needs to have careful control of his pain such that he does not have hypertension which can cause persistence of the bleeding. I am recommending continuation of use of narcotics for pain control and strict avoidance of any NSAIDs or other anticoagulant medications. DISPOSITION: This patient likely will end up spending at least two more nights in the hospital and possibly longer than that due to management needs. At the present time, there is no plan for acute surgical intervention on this patient. He may follow a regular diet. Over 35 minutes of subsequent evaluation and assessment time was spent in the care of this patient, over of which was in face to face evaluation, or in coordination of care, or in communication with the patient's family regarding care, exclusive of any procedures performed, [id number]. MTDD
[2018-06-28] MEDS: Nicotine 21 MG PATCH TOP SCH (20:44)
[2018-06-28] MEDS: Temazepam 15 MG CAP PO SCH (20:45)
[2018-06-28] MEDS: Polyethylene Glycol 3350 17 GM Packet PO SCH (20:45)
[2018-06-28] MEDS: Morphine 4 MG/ML VIAL IV PRN (21:44)
[2018-06-29] MEDS: Morphine 4 MG/ML VIAL IV PRN ×4 (04:44→20:44)
[2018-06-29 06:30] LABS: #Eosinphils 0.6 thou/uL (0.0-0.7); #Lymphocytes 1.9 thou/uL (1.20-3.40); #Monocytes 1.1 thou/uL (0.11-0.59); %Basophils 0.3 % (0.0-1.0); %Eosinophils 5.4 % (0.0-10.0); %Lymphocytes 16.3 % (21.0-51.0); %Monocytes 9.3 % (0.0-10.0); %Neutrophils 68.8 % (42.0-75.0); Mean Corpuscular HGB CONC 35.6 g/dL (32.0-36.0); Mean Corpuscular Hemoglobin 31.9 pg (27.0-31.0); Mean Corpuscular Volume 89.7 fL (78.0-98.0); Mean Platelet Volume 5.5 fL (7.4-10.4); Platelet Count 336 thou/uL (130-400); RBC Distribution Width 11.7 % (11.5-14.5); Red Blood Cell (RBC) Count 3.12 mill/uL (4.70-6.10); White Blood Cell (WBC) Count 11.6 thou/uL (4.8-10.8)
[2018-06-29 07:02] LABS: Anion Gap 11 mmol/L (10-20); BUN (Urea Nitrogen) 10 mg/dL (8.9-20.6); Calc. Creatinine Clearance 124 mL/min (70-130); Calcium 8.7 mg/dL (7.8-10.44); Carbon Dioxide 27 mmol/L (22-29); Chloride 100 mmol/L (98-107); Estimated GFR-MDRD 74; Glucose 122 mg/dL (70-105); Potassium 3.6 mmol/L (3.5-5.1); Sodium 134 mmol/L (136-145)
[2018-06-29] MEDS: Polyethylene Glycol 3350 17 GM Packet PO SCH ×2 (08:34→20:43)
[2018-06-29] MEDS: Famotidine 20 MG TAB PO SCH ×2 (08:34→20:44)
--- NOTE | 2018-06-29 09:19 | PDOC.PN ---
- Subjective Encounter Start Date: 06/29/18 Encounter Start Time: 07:00 overall pt is doing well, his pain is controlled, he has low grade fever only - Objective Resuscitation Status: Resuscitation Status FULL:Full Resuscitation MAR Reviewed: Yes Vital Signs & Weight: Vital Signs (12 hours) Temp 06/29/18 04:49 99.1 F Weight Weight 226 lb 14.4 oz I&O: 06/28/18 06/29/18 06/30/18 06:59 06:59 06:59 Intake Total 1550 Balance 1550 Result Diagrams: 06/29/18 06:22 06/29/18 06:22 Phys Exam - Physical Examination Constitutional: NAD HEENT: PERRLA, moist MMs, sclera anicteric Neck: no JVD, supple Respiratory: no wheezing, no rales, no rhonchi Cardiovascular: RRR, no significant murmur, no rub Gastrointestinal: soft, non-tender, no distention, positive bowel sounds Musculoskeletal: no edema, pulses present Neurological: non-focal, normal sensation, moves all 4 limbs Psychiatric: normal affect, A&O x 3 Skin: no rash, normal turgor Dx/Plan (1) Acute left flank pain Code(s): R10.9 - UNSPECIFIED ABDOMINAL PAIN Status: Acute (2) Hemorrhage of left kidney Code(s): N28.89 - OTHER SPECIFIED DISORDERS OF KIDNEY AND URETER Status: Acute (3) Anemia due to acute blood loss Code(s): D62 - ACUTE POSTHEMORRHAGIC ANEMIA Status: Acute (4) Leucocytosis Code(s): D72.829 - ELEVATED WHITE BLOOD CELL COUNT, UNSPECIFIED Status: Acute Qualifiers: Leukocytosis type: bandemia Qualified Code(s): D72.825 - Bandemia (5) Microscopic hematuria Code(s): R31.29 - OTHER MICROSCOPIC HEMATURIA Status: Acute (6) Cannabis abuse Code(s): F12.10 - CANNABIS ABUSE, UNCOMPLICATED Status: Chronic (7) Obesity (BMI 30.0-34.9) Code(s): E66.9 - OBESITY, UNSPECIFIED Status: Chronic (8) Tobacco abuse Code(s): Z72.0 - TOBACCO USE Status: Chronic (9) Sepsis Code(s): A41.9 - SEPSIS, UNSPECIFIED ORGANISM Status: Acute - Plan cont current plan of care, continue antibiotics * ID, CT surgeon and urology recommendation noted * continue rocephin today * will observe today and see how he dose in next 24 hours * if stable then will consider discharge in next 24-48 hours when all consultants clears * medication reviewed as below * symptomatic treatment. * fever tending down, wbc improving, hb stable Review of Systems - Review of Systems Eyes: negative: Pain, Vision Change, Conjunctivae Inflammation, Eyelid Inflammation, Redness, Other ENT: negative: Ear Pain, Ear Discharge, Nose Pain, Nose Discharge, Nose Congestion, Mouth Pain, Mouth Swelling, Throat Pain, Throat Swelling, Other Respiratory: negative: Cough, Dry, Shortness of Breath, Hemoptysis, SOB with Excertion, Pleuritic Pain, Sputum, Wheezing Cardiovascular: negative: chest pain, palpitations, orthopnea, paroxysmal nocturnal dyspnea, edema, light headedness, other Gastrointestinal: negative: Nausea, Vomiting, Abdominal Pain, Diarrhea, Constipation, Melena, Hematochezia, Other Genitourinary: negative: Dysuria, Frequency, Incontinence, Hematuria, Retention , Other Musculoskeletal: negative: Neck Pain, Shoulder Pain, Arm Pain, Back Pain, Hand Pain, Leg Pain, Foot Pain, Other Skin: negative: Rash, Lesions, Trey, Bruising, Other - Medications/Allergies Allergies/Adverse Reactions: Allergies Allergy/AdvReac Type Severity Reaction Status Date / Time No Known Allergies Allergy Verified 06/24/18 04:59 Medications: Current Medications Acetaminophen (Tylenol) 650 mg PO Q4H PRN PRN Reason: Headache/Fever or Pain Last Admin: 06/28/18 12:41 Dose: 650 mg Hydrocodone Bitart/Acetaminophen ([place] 10/325) 1 tab PO Q4H PRN PRN Reason: Moderate Pain (4-6) Last Admin: 06/28/18 15:06 Dose: 1 tab Al Hydroxide/Mg Hydroxide (Maalox) 30 ml PO Q6H PRN PRN Reason: Heartburn or Indigestion Last Admin: 06/26/18 10:44 Dose: 30 ml Artificial Tears (Tears Naturale) 0 drop EA EYE PRN PRN PRN Reason: Dry Eyes Clonidine (Catapres) 0.1 mg PO Q4H PRN PRN Reason: Systolic BP > 180 Famotidine (Pepcid) 20 mg PO BID [facility] Last Admin: 06/29/18 08:34 Dose: 20 mg Guaifenesin (Robitussin Sf) 200 mg PO Q4H PRN PRN Reason: Cough Hydralazine HCl (Apresoline) 10 mg SLOW IVP Q4H PRN PRN Reason: Systolic BP > 180 Ceftriaxone Sodium 2 gm/ (Sodium Chloride) 100 mls @ 200 mls/hr IVPB Q24HR [facility] Last Admin: 06/28/18 14:53 Dose: 100 mls Loperamide HCl (Imodium) 2 mg PO PRN PRN PRN Reason: Diarrhea/Loose Stools Loratadine (Claritin) 10 mg PO DAILYPRN PRN PRN Reason: Sinus Symptoms Magnesium Hydroxide (Milk Of Magnesium) 30 ml PO DAILYPRN PRN PRN Reason: Constipation Last Admin: 06/26/18 08:45 Dose: 30 ml Mineral Oil/White Petrolatum (Eucerin Cream) 0 gm TOP BIDPRN PRN PRN Reason: Dry Skin Morphine Sulfate (Morphine) 4 mg IV Q2H PRN PRN Reason: Pain Last Admin: 06/29/18 08:34 Dose: 4 mg Nicotine (Nicoderm Patch) 21 mg TOP Q24HR [facility] Last Admin: 06/28/18 20:44 Dose: 21 mg Ondansetron HCl (Zofran Odt) 4 mg PO Q6H PRN PRN Reason: Nausea/Vomiting Ondansetron HCl (Zofran) 4 mg IVP Q6H PRN PRN Reason: Nausea/Vomiting Phenol (Chloraseptic [place] 180 Ml Bot) 0 ml PO PRN PRN PRN Reason: Sore Throat Polyethylene Glycol (Miralax) 17 gm PO BID [facility] Last Admin: 06/29/18 08:34 Dose: 17 gm Senna (Senokot) 2 tab PO HSPRN PRN PRN Reason: Constipation Last Admin: 06/28/18 09:04 Dose: 2 tab Sodium Chloride (Flush - Normal Saline) 10 ml IVF Q12HR [facility] Last Admin: 06/29/18 08:34 Dose: 10 ml Sodium Chloride (Flush - Normal Saline) 10 ml IVF PRN PRN PRN Reason: Saline Flush Sodium Chloride ([place] Nasal [place] 0.65%) 0 ml EA NARE QIDPRN PRN PRN Reason: Nasal Congestion Temazepam (Restoril) 15 mg PO HS [facility] Last Admin: 06/28/18 20:45 Dose: 15 mg
[2018-06-29] MEDS: HYDROcodone/Acetaminophen 10/325 mg Tablet PO PRN (11:39)
[2018-06-29] MEDS: cefTRIAXone\\ROCEPHIN 2 GM in Sodium Chloride 0.9% 100 ML IVPB SCH (14:10)
--- NOTE | 2018-06-29 17:37 | PRG ---
DATE OF SERVICE: 06/29/2018 HISTORY: Mr. Beth is following bed rest today. Pain is a little better controlled. No respirator y symptoms. No diarrhea. PHYSICAL EXAMINATION: VITAL SIGNS: T-max 99.4 and is awake and alert, in no distress. LUNGS: Clear. HEART: S1, S2, regular rate. ABDOMEN: Soft with mild tenderness left flank. LABORATORY DATA: White cell count 11.6, hemoglobin 10, platelets 336. Sodium 134, creatinine 1.07. Hepatitis C and HIV serology nonreactive. ASSESSMENT AND DISCUSSION: Spontaneous renal bleeding with superimposed fever, possible infection of the area of hemorrhage. The underlying etiology is not yet clear. The patient to continue on Rocep hin for now hoping that the bleeding will stop. Otherwise either he is going to need embolization or surgical resolution.
[2018-06-29] MEDS: Nicotine 21 MG PATCH TOP SCH (20:42)
[2018-06-29] MEDS: Temazepam 15 MG CAP PO SCH (20:43)
[2018-06-29] MEDS: Acetaminophen 325 MG TAB PO PRN (20:44)
--- NOTE | 2018-06-30 02:01 | CON ---
DATE OF HOSPITAL ADMISSION: 06/24/2018 DATE OF SERVICE: 06/29/2018 REASON FOR INITIAL CONSULTATION: Left-sided renal hemorrhage and perinephric hematoma. PROBLEM LIST Hematoma of left kidney, initial encounter, S37.012A Left flank pain, R10.9 UTI (urinary tract infection), N39.0 HISTORY OF PRESENT ILLNESS: Mr. 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 He developed an acute spontaneous renal to perirenal hemorrhage on 06/24/2018, subsequently presented to the emergency department where he underwent CT scanning demonstrating the presence of hemorrhage on the left side. INTERVAL ISSUES: The patient overnight has not undergone any new imaging studies. Vital signs have been stable. PHYSICAL EXAMINATION: VITAL SIGNS: Temperature is 99.0 F, he has been afebrile with a peak temperature yesterday at noon of 100.3. Today, there has been no fever. Pulse is currently at 85, respiratory rate 16, O2 saturation is 93%, blood pressure is 128/78. Pain is under reasonable control. The patient is on an air mattress in a regular hospital bed this evening. He has GISELA hose and sequential compression devices in place. GENERAL: This is a pleasant, awake, alert, white male in no distress. HEAD, EYES, EARS, NOSE AND THROAT: Extraocular movements are intact. Sclerae are anicteric. Oropharynx is clear. NECK: Supple. LUNGS: Clear to auscultation bilaterally. CARDIAC: Regular rate and rhythm. There is no evidence of tachycardia. No arrhythmias. ABDOMEN: Soft and nontender anteriorly. There is no left-sided flank tenderness. I do not perform percussion because we trying to get the patient's kidney to stop bleeding. He is reporting reasonable pain control. GENITOURINARY: Not repeated. The patient is voiding spontaneously on his own. EXTREMITIES: Bilateral GISELA hose and sequential compression devices are in place. LABORATORY STUDIES: [place] [id number] [place], hemoglobin is 10 with a hematocrit of 28. The patient's admission hemoglobin was 12.6 with hematocrit of 36.1. There is no left shift today, only white cell differential at 68.8%. ASSESSMENT AND PLAN: Left-sided renal to perinephric hematoma, after apparent spontaneous rupture of a cyst origin of which is uncertain. It appears the patient may have had either a septic embolus, a renal mass or cyst that ruptured. At the present time, he is on observation for those findings. It does not appear to have a significant enough of a bleed to undergo an actual embolization procedure at this point. The patient will undergo CT scanning of the abdomen and pelvis tomorrow. Over 25 minutes of subsequent evaluation and assessment time was spent in the care of this patient, over of which was in face to face evaluation, or in coordination of care, or in communication with the patient's family regarding care, exclusive of any procedures performed, [id number]. [facility]
[2018-06-30] MEDS: Famotidine 20 MG TAB PO SCH ×2 (08:59→21:03)
[2018-06-30] MEDS: Polyethylene Glycol 3350 17 GM Packet PO SCH ×2 (08:59→21:05)
--- NOTE | 2018-06-30 10:44 | PDOC.PN ---
- Subjective Encounter Start Date: 06/30/18 Encounter Start Time: 07:00 last fever was yesterday, pain controlled - Objective Resuscitation Status: Resuscitation Status FULL:Full Resuscitation MAR Reviewed: Yes Vital Signs & Weight: Vital Signs (12 hours) Temp Pulse Resp BP Pulse Ox 06/30/18 08:00 98.8 F 88 18 119/82 93 L 06/30/18 04:01 98.6 F 06/30/18 00:00 98.0 F Weight Weight 226 lb 14.4 oz I&O: 06/29/18 06/30/18 07/01/18 06:59 06:59 06:59 Intake Total 600 Balance 600 Result Diagrams: 06/29/18 06:22 06/29/18 06:22 Radiology Reviewed by me: Yes (CT abdomen) Phys Exam - Physical Examination Constitutional: NAD HEENT: PERRLA, moist MMs, sclera anicteric Neck: no JVD, supple Respiratory: no wheezing, no rales, no rhonchi Cardiovascular: RRR, no significant murmur, no rub Gastrointestinal: soft, non-tender, no distention, positive bowel sounds Musculoskeletal: no edema, pulses present Neurological: non-focal, normal sensation, moves all 4 limbs Psychiatric: normal affect, A&O x 3 Skin: no rash, normal turgor Dx/Plan (1) Acute left flank pain Code(s): R10.9 - UNSPECIFIED ABDOMINAL PAIN Status: Acute (2) Hemorrhage of left kidney Code(s): N28.89 - OTHER SPECIFIED DISORDERS OF KIDNEY AND URETER Status: Acute (3) Anemia due to acute blood loss Code(s): D62 - ACUTE POSTHEMORRHAGIC ANEMIA Status: Acute (4) Leucocytosis Code(s): D72.829 - ELEVATED WHITE BLOOD CELL COUNT, UNSPECIFIED Status: Acute Qualifiers: Leukocytosis type: bandemia Qualified Code(s): D72.825 - Bandemia (5) Microscopic hematuria Code(s): R31.29 - OTHER MICROSCOPIC HEMATURIA Status: Acute (6) Cannabis abuse Code(s): F12.10 - CANNABIS ABUSE, UNCOMPLICATED Status: Chronic (7) Obesity (BMI 30.0-34.9) Code(s): E66.9 - OBESITY, UNSPECIFIED Status: Chronic (8) Tobacco abuse Code(s): Z72.0 - TOBACCO USE Status: Chronic (9) Sepsis Code(s): A41.9 - SEPSIS, UNSPECIFIED ORGANISM Status: Acute - Plan cont current plan of care, continue antibiotics * today repeat CT abdomen * once all consultants clear, will consider discharge * medication reviewed as below * symptomatic treatment. * continue rocephin * wbc improving, hb stable Review of Systems - Review of Systems Eyes: negative: Pain, Vision Change, Conjunctivae Inflammation, Eyelid Inflammation, Redness, Other ENT: negative: Ear Pain, Ear Discharge, Nose Pain, Nose Discharge, Nose Congestion, Mouth Pain, Mouth Swelling, Throat Pain, Throat Swelling, Other Respiratory: negative: Cough, Dry, Shortness of Breath, Hemoptysis, SOB with Excertion, Pleuritic Pain, Sputum, Wheezing Cardiovascular: negative: chest pain, palpitations, orthopnea, paroxysmal nocturnal dyspnea, edema, light headedness, other Gastrointestinal: negative: Nausea, Vomiting, Abdominal Pain, Diarrhea, Constipation, Melena, Hematochezia, Other Genitourinary: negative: Dysuria, Frequency, Incontinence, Hematuria, Retention , Other Musculoskeletal: negative: Neck Pain, Shoulder Pain, Arm Pain, Back Pain, Hand Pain, Leg Pain, Foot Pain, Other Skin: negative: Rash, Lesions, Trey, Bruising, Other - Medications/Allergies Allergies/Adverse Reactions: Allergies Allergy/AdvReac Type Severity Reaction Status Date / Time No Known Allergies Allergy Verified 06/24/18 04:59 Medications: Current Medications Acetaminophen (Tylenol) 650 mg PO Q4H PRN PRN Reason: Headache/Fever or Pain Last Admin: 06/29/18 20:44 Dose: 650 mg Hydrocodone Bitart/Acetaminophen ([place] 10/325) 1 tab PO Q4H PRN PRN Reason: Moderate Pain (4-6) Last Admin: 06/29/18 11:39 Dose: 1 tab Al Hydroxide/Mg Hydroxide (Maalox) 30 ml PO Q6H PRN PRN Reason: Heartburn or Indigestion Last Admin: 06/26/18 10:44 Dose: 30 ml Artificial Tears (Tears Naturale) 0 drop EA EYE PRN PRN PRN Reason: Dry Eyes Clonidine (Catapres) 0.1 mg PO Q4H PRN PRN Reason: Systolic BP > 180 Famotidine (Pepcid) 20 mg PO BID CUCO Last Admin: 06/30/18 08:59 Dose: 20 mg Guaifenesin (Robitussin Sf) 200 mg PO Q4H PRN PRN Reason: Cough Hydralazine HCl (Apresoline) 10 mg SLOW IVP Q4H PRN PRN Reason: Systolic BP > 180 Ceftriaxone Sodium 2 gm/ (Sodium Chloride) 100 mls @ 200 mls/hr IVPB Q24HR [facility] Last Admin: 06/29/18 14:10 Dose: 100 mls Loperamide HCl (Imodium) 2 mg PO PRN PRN PRN Reason: Diarrhea/Loose Stools Loratadine (Claritin) 10 mg PO DAILYPRN PRN PRN Reason: Sinus Symptoms Magnesium Hydroxide (Milk Of Magnesium) 30 ml PO DAILYPRN PRN PRN Reason: Constipation Last Admin: 06/26/18 08:45 Dose: 30 ml Mineral Oil/White Petrolatum (Eucerin Cream) 0 gm TOP BIDPRN PRN PRN Reason: Dry Skin Morphine Sulfate (Morphine) 4 mg IV Q2H PRN PRN Reason: Pain Last Admin: 06/29/18 20:44 Dose: 4 mg Nicotine (Nicoderm Patch) 21 mg TOP Q24HR [facility] [place] Last Admin: 06/29/18 20:42 Dose: 21 mg Ondansetron HCl (Zofran Odt) 4 mg PO Q6H PRN PRN Reason: Nausea/Vomiting Ondansetron HCl (Zofran) 4 mg IVP Q6H PRN PRN Reason: Nausea/Vomiting Phenol (Chloraseptic [place] 180 Ml Bot) 0 ml PO PRN PRN PRN Reason: Sore Throat Polyethylene Glycol (Miralax) 17 gm PO BID [facility] Last Admin: 06/30/18 08:59 Dose: 17 gm Senna (Senokot) 2 tab PO HSPRN PRN PRN Reason: Constipation Last Admin: 06/28/18 09:04 Dose: 2 tab Sodium Chloride (Flush - Normal Saline) 10 ml IVF Q12HR [facility] [place] Last Admin: 06/30/18 08:58 Dose: 10 ml Sodium Chloride (Flush - Normal Saline) 10 ml IVF PRN PRN PRN Reason: Saline Flush Last Admin: 06/29/18 14:11 Dose: 10 ml Sodium Chloride ([place] Nasal [place] 0.65%) 0 ml EA NARE QIDPRN PRN PRN Reason: Nasal Congestion Temazepam (Restoril) 15 mg PO HS [facility] Last Admin: 06/29/18 20:43 Dose: 15 mg
--- NOTE | 2018-06-30 11:00 | CT ---
CT ABDOMEN WITHOUT AND WITH CONTRAST: Date: 06/30/18 COMPARISON: 06/28/18. HISTORY: Bleeding from left kidney. TECHNIQUE: Multiple contiguous axial images were obtained in a CT of the abdomen only without and with contrast. Coronal reformats were performed. FINDINGS: There is a heterogeneous fluid collection surrounding the left kidney and involving the anterior aspe ct of the left kidney. This has both hypodense and hyperdense regions. There is an area demonstrating enhancement of the arterial phase measuring approximately 9.0 mm in size, which may represent an are a of active extravasation. This was seen on the prior examination. The size of the fluid collection w hich likely represents a hematoma has remained stable without significant increase or decrease in siz e. There is no evidence of hydronephrosis or a delay in the left nephrogram. The liver, gallbladder, rig ht kidney, adrenal glands, spleen, and pancreas are unremarkable. The visualized large and small bowel are unremarkable. No abdominal adenopathy is seen. Atherosclerot ic calcifications are seen in the aorta. Atelectasis is seen in both lung bases and there is a small left pleural effusion. Degenerative boles es are seen in the spine. There is a small, fat-containing umbilical hernia. IMPRESSION: Stable left renal perinephric hematoma. POS: [facility]
[2018-06-30] MEDS: HYDROcodone/Acetaminophen 10/325 mg Tablet PO PRN ×2 (11:17→21:04)
[2018-06-30] MEDS: cefTRIAXone\\ROCEPHIN 2 GM in Sodium Chloride 0.9% 100 ML IVPB SCH (14:30)
[2018-06-30] MEDS: Nicotine 21 MG PATCH TOP SCH (21:03)
[2018-06-30] MEDS: Temazepam 15 MG CAP PO SCH (21:04)
--- NOTE | 2018-07-01 02:40 | CON ---
DATE OF CONSULTATION: 06/30/2018 DATE OF INITIAL CONSULTATION: 06/24/2018 REASON FOR INITIAL CONSULTATION: Left perinephric hematoma and left renal fracture spontaneous. 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 Harshal Krishnamurthy is a very pleasant 48-year-old white male who experienced an unfortunate left renal spontaneous hematoma with partial fracture of his left kidney on 06/24/2018. Mr. Beth works in a [employer] and is not aware of any trauma associated with the spontaneous renal rupture and hematoma. Patient developed a perinephric bleed, which stabilized on 2017 at its maximum size. He has been imaged with CT scan imaging essentially every other day during this hospitalization. The hematoma has been stable in size since 06/26/2018 actually reducing in size, a little bit. Patient underwent a new CT scan imaging study this morning, which was reviewed. Both myself and Dr. Steve Aranda reviewed the imaging studies and came to the same independent conclusion, that the patient has arteriovenous fistula and is not undergoing active bleeding leading to enlargement of the hematoma. PHYSICAL EXAMINATION: VITAL SIGNS: Temperature is 98.0, pulse of 91, respirations are 16, O2 saturation on room air is 94% with a blood pressure currently at 138/82. Patient's blood pressure has been relatively stable except for association with pain. Patient has been afebrile for over 24 hours, did have a T-max of 100.3 degrees Fahrenheit yesterday afternoon up to 8:00 p.m. HEAD, EYES, EARS, NOSE, AND THROAT: Extraocular movements are intact. Sclerae anicteric. Oropharynx is clear. NEUROLOGIC: Cranial nerves III-XI are grossly intact. Motor function, patient is able to move all 4 extremities against gravity. He is able to ambulate. There are no focal neurologic deficits. LUNGS: Clear to auscultation bilaterally possibly some elevation of the breath sounds on the patient's left side. There is increased transfer of cardiac and pulmonary sounds through the left lower chest wall suggesting solid mass consistent with patient's known hematoma in the area. ABDOMEN: Soft and nontender. Patient does not report significant flank pain. GENITOURINARY: Not repeated today. EXTREMITIES: Appeared within normal limits. LABORATORY STUDIES: Patient's white blood cell count is 11,600 down from 13, 900 yesterday, hemoglobin is stable at 10 with hematocrit of 28, essentially unchanged on 06/26/2018. Patient's renal function appears to be performing well with current blood urea nitrogen of 10 and creatinine of 1.07 relatively stable over the patient's entire hospitalization. Electrolytes are within normal limits. RADIOLOGIC STUDIES: A CT scan of the abdomen and pelvis was obtained on 2017 compared to previous imaging studies that shows relatively stable size hematoma on contrast phase, arterial phase imaging, blush areas seen which rapidly clears on followups subsequent expiratory phase imaging. This suggests presence of an arteriovenous fistula as patient's hematoma is not increased in size and the blush is only present during arterial phase and has rapidly cleared indicating that the dye was not being extravasated into the surrounding tissue or hematoma. ASSESSMENT AND PLAN: 1. 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 Present time, patient does not appear to be having any leak. 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 Patient is appropriate for observation tonight and probably can go home tomorrow based on the findings. Patient would need to maintain bed rest at home and will need to have follow up CT scan imaging as a 3-phase renal mass protocol to be performed in about 1 month's time. Instability in patient's vital signs at home, which prompted 911 call and transferred immediately to the emergency room for evaluation and assessment. Patient should be discharged home with a long-term supply of narcotics and recommending to be prescribed [place] 5/325 or 10/325, to be taken up mg 1-2 tablets q.4 hours p.r.n. for pain. He should have a prescription of at least 40 tablets as his pain symptoms are likely to last longer than a month. Total resolution of the patient's flank hematoma will probably take close to 3 months. 2. ID concerns, I would be agreement with Dr. Blanco' recommendations, as I understand them are to continue on Rocephin tonight and then to be discharged home on oral antibiotic equivalent as patient's white count has fallen on this therapy. Concerns here would be for further renal issues associated with a possibly infected hematoma. Patient should also presented to the emergency department for high fever, shaking chills, or other findings to suggest an acute inflammatory process. 3. Causative factors involved in the kidney rupture at the present time, the exact cause of the patient's perinephric hematoma and renal rupture is unclear. We had no preceding imaging studies for comparison purposes on this patient until the actual event occurred at present time, those concepts are entertained or that for a renal cell carcinoma or other type of tumor possibly a rupture of a hemorrhagic type cyst or a septic type cyst. At the present time, the distinction between that three cannot be clearly made and I would recommend follow up imaging in about 3 months' time point in addition to the one-month CT follow up. If abnormal findings are found at that point, further evaluation assessment can be performed. 4. Surgical planning concerns. I do not anticipate any surgical interventions on this patient during his hospitalization. I discussed his care with Dr. Steve Aranda and believe that no embolization is going to be required on this hospitalization either. Over 35 minutes of subsequent evaluation and assessment time was spent in the care of this patient, over of which was in face to face evaluation, or in coordination of care, or in communication with the patient's family regarding care, exclusive of any procedures performed, [id number]. [facility]
[2018-07-01] MEDS: Polyethylene Glycol 3350 17 GM Packet PO SCH (08:24)
[2018-07-01] MEDS: Famotidine 20 MG TAB PO SCH (08:26)
[2018-07-01 08:49] VITALS: BP 132/86; TEMP 98
--- NOTE | 2018-07-01 10:01 | DIS ---
DATE OF ADMISSION: 06/24/2018 DATE OF DISCHARGE: 07/01/2018 PRIMARY CARE PHYSICIAN: [facility] call admission. DISCHARGE DISPOSITION: Home. PRIMARY DISCHARGE DIAGNOSES: 1. Acute left flank pain, intractable due to spontaneous left renal hemorrhage. 2. Anemia due to acute blood loss. 3. Leukocytosis with bandemia with sepsis criteria due to urinary tract infection secondary to Strep tococcus. 4. Microscopic hematuria, due to problem #1. SECONDARY DISCHARGE DIAGNOSES: Obesity with BMI 30, tobacco abuse disorder, cannabis abuse. PRIMARY PROCEDURE/OPERATION: 1. The patient had several CT of the abdomen and pelvis while in hospital. His initial CT of the ab domen and pelvis showed spontaneous left renal hemorrhage. Subsequent repeat CT scan showed worsenin g of hematoma and last 2 CT scan remained stable. 2. Echocardiography showed normal EF. SIGNIFICANT LABORATORY DATA: WBC 11.6, hemoglobin 10.0, platelets 336. INR 1.0. Sodium 134, creati nine 1.07, calcium 8.7. Urinalysis showed microscopic hematuria. Urine drug screen positive for can nabinoid. HIV and hepatitis C negative. Blood culture negative. Urine culture grew Streptococcus. DISCHARGE MEDICATIONS: Ciprofloxacin 500 mg p.o. b.i.d. for 10 more days, Restoril 15 mg p.o. at bed time p.r.n., MiraLax 17 grams p.o. b.i.d., [place] 10 one tablet q.6 hourly p.r.n. for pain, nicotine p atch as directed. CONTRAINDICATIONS: None. CODE STATUS: FULL CODE. INPATIENT CONSULTANTS: Dr. Kole Andrade was following while in hospital. Dr. Steve Aranda was consu lted for evaluation of vascular therapy for spontaneous left renal hemorrhage. Dr. Blanco was consult ed for sepsis criteria. TEST RESULTS PENDING ON DISCHARGE: None. ALLERGIES: No known drug allergy. DISCHARGE PLAN: Post hospital, the patient will follow up with Dr. Raymond Sharif as instructed. HOSPITAL COURSE: A 48-year-old male who was admitted by me on 06/24/2018. Please see my HPI for fur ther detail. The patient was admitted for acute left flank pain. In the emergency room, the patient was diagnosed with a spontaneous left kidney hemorrhage with left perinephric hematoma. The patient was admitted initially to telemetry floor. We controlled his pain. He was given IV flui d. His hemoglobin dropped from his baseline to 10.0 that was related with his blood loss. His pain was intractable and that is why he required narcotics while in hospital. The next day, we transferre d him to the medical floor where he started having fever and that is why we were worried about either septic emboli and that is why we did echocardiography, which was normal. Repeat CT scan showed wors ening of hematoma. His pain was also not well controlled and that is why he remained in hospital. W e consulted Dr. Blanco and he recommended to continue Rocephin. While in hospital, we gave him initia lly Rocephin and vancomycin and then Rocephin was continued. His blood culture was negative. His ur ine culture was positive for Streptococcus agalactiae B. Repeat blood culture also remained negative . The patient was monitored with serial CT scan. We also consulted Dr. Steve Aranda for evaluation of vascular therapy given worsening of hematoma, but he did not recommend any vascular therapy at th is point. Eventually with observation, his hematoma stabilized. His H&H remained stable. He remain ed afebrile. At this point, this working diagnosis is AV malformation in the kidney that causing his bleeding and that is why he will need outpatient follow up with Dr. Andrade. PHYSICAL EXAMINATION: The patient is seen and examined at bedside today. VITAL SIGNS: Currently, temperature 98.0, pulse 94, respiratory rate 20, saturation 92%, blood press ure 132/86, weight 226 pounds. GENERAL: The patient is currently alert, awake, no obvious acute distress. HEAD: Normocephalic, atraumatic. EYES: Pupils round, reactive to light. Extraocular muscle intact. ENT: Oropharynx within normal limits. LUNGS: Clear to auscultation without any rhonchi or rales. CARDIAC: S1, S2 regular without any murmur. ABDOMEN: Soft and benign. EXTREMITIES: No edema. NEUROLOGIC: Nonfocal examination. All new medication prescriptions given to him. Plan of care discussed with the patient. Review of systems reviewed with him negative. Discussed with the [facility] consultant and cleared for discharg e. Total time spent on discharge day 31 minutes.
== END 2018-07-01 10:37 | disposition home or self-care (01) | DRG 872 ==
LOC: ERS 22:57 → 2NO 06-24 04:05 → ONC 06-24 19:09
PROVIDERS: ADMIT Hospitalist; ATTEND Hospitalist
DX: A41.9 Sepsis, unspecified organism (principal); E87.1 Hypo-osmolality and hyponatremia; D62 Acute posthemorrhagic anemia; N39.0 Urinary tract infection, site not specified; N28.89 Other specified disorders of kidney and ureter; F31.9 Bipolar disorder, unspecified; D72.829 Elevated white blood cell count, unspecified; R73.9 Hyperglycemia, unspecified; R31.29 Other microscopic hematuria; E66.9 Obesity, unspecified; Z68.30 Body mass index [BMI] 30.0-30.9, adult; F12.10 Cannabis abuse, uncomplicated; F17.210 Nicotine dependence, cigarettes, uncomplicated; B95.5 Unspecified streptococcus as the cause of diseases classified elsewhere
CPT/HCPCS: 36415; 74170; 74176; 74177; 80048; 80053; 80202; 80306; 81003; 81015; 83605; 83690; 85025; 85610; 85730; 86803; 86850; 86900; 86901; 87040; 87077; 87086; 87389; 93306; 96361; 96365; 96375; 96376; 99406; A4216; J0696; J1885; J2270; J2405; J3370; J7050

== ENCOUNTER 2018-07-20 09:34 | Outpatient (CLI) | payer OTHER, SELFPAY ==
--- NOTE | 2018-07-20 13:12 | CT ---
CT ABDOMEN AND PELVIS WITH AND WITHOUT IV CONTRAST: HISTORY: Left kidney tumor and hematoma. COMPARISON: 06/30/2018 FINDINGS: The heterogeneous fluid collection surrounding the left kidney (lateral and anterior aspects) is agai n seen, with both hypodense and hyperdense regions. There is a minimal interval decrease in size, me asuring 10 x 10 cm. Surrounding inflammatory changes are again noted, with mild improvement. No con trast extravasation is seen. Tiny calcifications in the region of the anterior cortex of the left ki dney are again seen. There is normal contrast excretion into the ureters bilaterally and the urinary bladder. The liver, spleen, pancreas, adrenal glands, and right kidney are normal. There is residual inflamma tory change in the anterior pararenal space, close to the tail of the pancreas. No calcified gallsto rj are seen. No free air, free fluid, or lymphadenopathy is identified. The small bowel loops are not abnormally dilated. A fat-containing umbilical hernia is again seen. A normal appearing appendix is present. There are mild degenerative changes in the spine. The previously noted left small pleural effusion h as resolved in the interim. IMPRESSION: Minimal interval decrease in the size of the left perinephric hematoma since 06/30/2018. POS: [facility]
[2018-07-20] MEDS ORDERED: Iopamidol 370 76% 100 ML VIAL ONE (13:56)
== END 2018-07-20 09:35 | disposition home or self-care (01) ==
LOC: CT 09:34
PROVIDERS: ATTEND Urology
DX: D49.519 Neoplasm of unspecified behavior of unspecified kidney (principal); N28.89 Other specified disorders of kidney and ureter
CPT/HCPCS: 74178

== ENCOUNTER 2018-07-27 10:57 | Outpatient (CLI) | payer OTHER ==
--- NOTE | 2018-07-27 14:29 | ULT ---
ULTRSOUND RENAL DOPPLER DUPLEX: Date: 07-27-18 History: 48-year-old male with left renal hematoma. Technique: Grayscale images of bilateral kidneys and urinary bladder. Color flow and spectral analysis of selected level arteries related to the bilateral kidneys. FINDINGS: The right kidney has normal morphology, measuring 11 x 5 x 5 cm. There is a tiny hyperechoic focus at the corticomedullary junction at the midpole on the right, but recent noncontrast CTs demonstrate no calculus, and therefore this is probably a portion of a blood vessel. No hydronephrosis of the right kidney. The left kidney is 12 x 7.5 x 7 cm. This includes a mildly, heterogeneously hypoechoic mass, which is difficult to separate from the renal parenchyma. The renal parenchyma is distorted by this mass. Rec ent CT images that demonstrated that this mass is consistent with a large hematoma. Highest peak systolic velocities: Right renal artery: 80 cm/s Left renal artery: 50 cm/s Aorta: 70 cm/s Right renal artery/aorta ratio: 1.1 Left renal artery/aorta ratio: 0.7 Resistive indices: Right arcuate: 0.55 Left arcuate: 0.59 The urinary bladder is normal. IMPRESSION: 1. Left renal mass is consistent with a hematoma, probably involving subcapsular space of the kidney. Continued follow up CT's (preferably with and without contrast) are recommended to rule out underlyi ng neoplasm. 2. Normal resistive indices, and normal main renal artery velocities. POS: [facility]
== END 2018-07-27 10:58 | disposition home or self-care (01) ==
LOC: BICULT 10:57
PROVIDERS: ATTEND Urology
DX: D49.519 Neoplasm of unspecified behavior of unspecified kidney (principal); N28.89 Other specified disorders of kidney and ureter
CPT/HCPCS: 76700; 76770